=== PATIENT | male | born 1945 | race Caucasian/White ===

== ENCOUNTER 2016-08-25 16:31 | Observation (INO) ==
[2016-08-25] MEDS ORDERED: 0.9 % Sodium Chloride 1,000 ML IVC ONE ×2 (17:37→18:27)
--- NOTE | 2016-08-25 17:46 | Emergency Department Note ---
Disposition Clinical Impression: UTI (urinary tract infection) Qualifiers: Urinary tract infection type: site unspecified Hematuria presence: with hematuria Qualified Code(s): N39.0 - Urinary tract infection, site not specified Altered mental status Qualifiers: Altered mental status type: unspecified Qualified Code(s): R41.82 - Altered mental status, unspecified CKD (chronic kidney disease) Qualifiers: Chronic kidney disease stage: unspecified stage Qualified Code(s): N18.9 - Chronic kidney disease, unspecified Anemia Qualifiers: Anemia type: unspecified type Qualified Code(s): D64.9 - Anemia, unspecified Disposition: Admitted As Inpatient Condition: Fair Altered Mental Status HPI - General Chief Complaint: ED Altered Mental Status Stated Complaint: AMS Time Seen by Provider: 08/25/16 17:36 Source: patient Limitations: no limitations Nursing Notes Reviewed: Yes Vital Signs Reviewed: Yes - History of Present Illness HPI Narrative: 71-year-old male with multiple comorbid conditions including diabetes, CAD presents for evaluation of altered mental status. Patient is alert and oriented at this time but was sent in by his provider due to concerns of possible urinary tract infection sepsis. Patient states that he has been having hallucinations where he seen people. Family at bedside states that he is been acting more appropriately recently. Notes that he has had alterations in mental status and confusion. Reports fever and chills. Reported intermittent chest pain. No shortness of breath. No vomiting. No abdominal pain. No diarrhea or constipation. No recent changes in medications. Patient does state that he has had hematuria since July. Patient was evaluated by urology with a scope with an unknown diagnosis by the patient. He takes a baby aspirin. No other anticoagulation. - Related Data Home Medications Medication Instructions Recorded Confirmed Albuterol Sulfate [Proair Hfa] 2 puff IH Q4H PRN 07/29/16 07/29/16 Aspirin 81 mg PO DAILY 07/29/16 07/29/16 Atorvastatin [Lipitor] 40 mg PO HS 07/29/16 07/29/16 Celecoxib [Celebrex] 200 mg PO DAILY 07/29/16 07/29/16 Cilostazol [Pletal] 100 mg PO BID 07/29/16 07/29/16 Gabapentin [Neurontin] 100 mg PO TID 07/29/16 07/29/16 GlipiZIDE [Glipizide ER] 10 mg PO BID 07/29/16 07/29/16 Insulin DETEMIR [Levemir] 40 unit SQ HS 07/29/16 07/29/16 Isosorbide MONOnitrate (24 HR) 30 mg PO DAILY 07/29/16 07/29/16 [Imdur] Lisinopril/Hydrochlorothiazide 1 each PO DAILY 07/29/16 07/29/16 [Zestoretic 20-12.5 mg Tablet] Melatonin 5 mg PO HS PRN 07/29/16 07/29/16 Metoprolol XL (24 HR) Succ [Toprol 25 mg PO DAILY 07/29/16 07/29/16 XL] Pioglitazone [Actos] 30 mg PO 0800 07/29/16 07/29/16 Sertraline [Zoloft] 100 mg PO DAILY 07/29/16 07/29/16 Umeclidinium [place] [Incruse 1 puff IH DAILY 07/29/16 07/29/16 Ellipta] amLODIPine [Norvasc] 2.5 mg PO DAILY 07/29/16 07/29/16 Allergies Allergy/AdvReac Type Severity Reaction Status Date / Time Cefaclor [From [facility]] Allergy Chest Pain Verified 07/29/16 08:47 metformin Allergy Diarrhea Verified 07/29/16 08:47 All systems ED: reviewed and negative except as stated. Constitutional: Reports: as per HPI. Denies: fever Eyes: Reports: as per HPI ENT ED: Reports: as per HPI Cardiovascular: Reports: as per HPI Respiratory: Reports: as per HPI Gastrointestinal: Reports: as per HPI. Denies: abdominal pain, nausea, vomiting Genitourinary: Reports: as per HPI, hematuria Musculoskeletal: Reports: as per HPI Integumentary: Reports: as per HPI Neurological: Reports: as per HPI Psychiatric: Reports: as per HPI Endocrine: Reports: as per HPI Past Medical History - Past Medical History Medical history: Reports: COPD, diabetes, hyperlipidemia Psychiatric history: Reports: anxiety, depression - Social History Smoking Status: Former smoker Smokeless Tobacco Status: No Alcohol use: Reports: none Drug use: Reports: none Physical Exam - General Limitations: no limitations General appearance: alert, in no apparent distress - Head Head exam: atraumatic, normocephalic, normal inspection - Eye Eye exam: Present: normal appearance, EOMI - ENT ENT exam: normal exam, mucous membranes moist - Neck Neck exam: Present: normal inspection, trachea midline - Chest Chest inspection: Present: normal inspection, symmetric chest wall rise - Respiratory Respiratory exam: Absent: respiratory distress, accessory muscle use - Cardiovascular Cardiovascular exam: Present: regular rate, normal rhythm - Abdominal Exam Abdominal exam: Present: soft, Non-Tender. Absent: guarding, rebound - Extremities Exam Extremities exam: Present: normal inspection. Absent: pedal edema - Back Exam Back exam: Present: normal inspection - Neurological Exam Neurological exam: Present: alert, oriented X3, CN II-XII intact - Expanded Neurological Exam Patient oriented to: Present: person, place, time Speech: Present: fluid speech Cranial nerves: EOM function (II, III, IV, ): Normal, facial sensation (V): Normal, facial palsy (VII): Normal, spinal accessory function (XI): Normal, tongue deviation (XII): Normal Motor strength - LUE: 5/5 Motor strength - RUE: 5/5 Motor strength - LLE: 5/5 Motor strength - RLE: 5/5 - Psychiatric Psychiatric exam: Present: normal affect - Skin Skin exam: Present: warm, dry, intact, normal color Course Course Narrative: Patient seen and examined. Patient's in no acute distress. Patient's alert and oriented 3. Patient will get a altered mental status workup with an emphasis on infection. Labs, IV fluids, lactate as well as urinalysis. Patient also get a head CT, chest x-ray. Disposition likely admission. - Reevaluation(s) Reevaluation #1: Patients in no acute distress. Patient's plan of care was addressed to him at bedside. Recommend admission. Spoke with hospitalist for admission. Time: 18:57 Vital Signs Temperature 98.1 F 08/25/16 16:36 Pulse Rate 94 08/25/16 16:36 Respiratory Rate 18 08/25/16 16:36 Blood Pressure 115/48 08/25/16 16:36 O2 Sat by Pulse Oximetry 94 08/25/16 16:36 Temperature 98.1 F 08/25/16 16:36 Pulse Rate 77 08/25/16 18:35 Respiratory Rate 16 08/25/16 18:35 Blood Pressure 131/57 08/25/16 18:35 O2 Sat by Pulse Oximetry 94 08/25/16 18:35 Oxygen Delivery Oxygen Delivery Room Air Altered Mental Status - MDM Narrative Medical decision making narrative: 71 YO male presents for evaluation of altered mental status confusion. Patient' s been having intermittent altered mental status as well as urinary symptoms including hematuria. Patient's urine was grossly abnormal on visual inspection. Patient's alert and oriented on exam. Patient's been having intermittent symptoms. Family at bedside confirms the symptoms. Patient states he also been having some hallucinations seeing people that are not there has been intermittent. Patient's lab work shows significant abnormalities including signs of infection in the urine. Patient also shows anemia. Worsening kidney function. Concerns for urinary tract infection causing altered mental status. Patient was started on Levaquin due to his cephalosporin allergy. Patient will be admitted to the hospital service for further violation monitoring. Do not believe this is meningitis or encephalitis. At this point the patient does not have any nuchal rigidity. The patient's alert and oriented with a nonfocal neurologic exam. Patient's symptoms possibly related to urinary source. Patient was updated on plan of care. Patient was admitted to the hospital service for further evaluation monitoring. - Lab Data Lab results reviewed: Yes I reviewed the patient's lab results. Result diagrams: 08/25/16 17:50 08/25/16 17:50 Lab Results 08/25/16 08/25/16 08/25/16 Range/Units 17:30 17:36 17:36 WBC (4.3-11.1) K/mcL RBC (4.19-5.50) M/mcL Hgb (12.9-16.9) g/dL Hct (37.5-50.1) % MCV (83.0-100.0) fL MCH (28.0-33.3) pg MCHC (31.6-35.5) g/dL RDW (11.5-14.5) % Plt Count (140-400) K/mcL MPV (9.4-12.4) fL Immature Gran % (0-4) % Seg Neutrophils % % Lymphocytes % % Monocytes % % Eosinophils % % Basophils % % Neutrophils # (1.6-8.9) K/mcL Lymphocytes # (0.6-4.6) K/mcL Monocytes # (0.0-1.3) K/mcL Eosinophils # (0.0-0.6) K/mcL Basophils # (0.0-0.2) K/mcL Platelet Estimate (Normal) PT (9.4-12.1) Seconds INR APTT (26.0-36.0) Seconds Sodium (136-145) mEq/L Potassium (3.5-4.5) mEq/L Chloride (98-109) mEq/L Carbon Dioxide (19-29) mEq/L BUN (8-26) mg/dL Creatinine (0.72-1.25) mg/dL Est GFR ( Amer) (> 60) Est GFR (Non-Af Amer) (> 60) BUN/Creatinine Ratio (6-26) Glucose (70-99) mg/dL POC Glucose 282 H (58-89) Calculated Osmolality (280-300) Lactic Acid (0.5-2.2) mmol/L Calcium (8.6-10.8) mg/dL Total Bilirubin (0.2-1.2) mg/dL Direct Bilirubin (0.0-0.5) mg/dL Indirect Bilirubin (0.0-1.2) mg/dL AST (5-34) Units/L ALT (0-55) Units/L Alkaline Phosphatase (38-126) Units/L Creatine Kinase (30-200) Units/L Troponin I (0-0.03) ng/mL Serum Total Protein (6.0-8.3) g/dL Albumin (3.5-5.0) g/dL Globulin (2.4-3.5) g/dL Albumin/Globulin Ratio (1.1-2.2) TSH (0.350-4.840) mcIU/mL Ur Specimen Adequacy See below A Urine Color Red A (Yellow) Urine Clarity Turbid A (Clear) Urine pH 5.0 (5.0-8.0) pH Units Ur Specific [place] 1.023 (1.010-1.025) Urine Protein >=300 H (Neg-Trace) mg/dL Urine Glucose (UA) Normal (Normal) mg/dL Urine Ketones 15 H (Negative) mg/dL Urine Blood Large H (Negative) Urine Nitrite Positive A (Negative) Urine Bilirubin Moderate H (Negative) Urine Urobilinogen Normal (Normal) mg/dL Ur Leukocyte Esterase Moderate H (Negative) Ur Culture Indicated? YES A (NO) Urine Opiates Screen Negative (Xmrdmu=475) ng/mL Ur Barbiturates Screen Negative (Teerro=835) ng/mL Ur Phencyclidine Scrn Negative (Cutoff=25) ng/mL Ur Amphetamines Screen Negative (Jiranz=3671) ng/mL U Benzodiazepines Scrn Negative (Yvjjxy=807) ng/mL Urine Cocaine Screen Negative (Cutoff= 300) ng/mL U Marijuana (THC) Screen Negative (Cutoff = 50) ng/mL Ethyl Alcohol (0-10) mg/dL 08/25/16 08/25/16 08/25/16 Range/Units 17:50 17:50 17:50 WBC 11.6 H (4.3-11.1) K/mcL RBC 3.98 L (4.19-5.50) M/mcL Hgb 11.8 L (12.9-16.9) g/dL Hct 34.6 L (37.5-50.1) % MCV 86.9 (83.0-100.0) fL MCH 29.6 (28.0-33.3) pg MCHC 34.1 (31.6-35.5) g/dL RDW 14.6 H (11.5-14.5) % Plt Count 159 (140-400) K/mcL MPV 9.7 (9.4-12.4) fL Immature Gran % 0.4 (0-4) % Seg Neutrophils % 83.2 % Lymphocytes % 7.5 % Monocytes % 8.4 % Eosinophils % 0.2 % Basophils % 0.3 % Neutrophils # 9.7 H (1.6-8.9) K/mcL Lymphocytes # 0.9 (0.6-4.6) K/mcL Monocytes # 1.0 (0.0-1.3) K/mcL Eosinophils # 0.0 (0.0-0.6) K/mcL Basophils # 0.0 (0.0-0.2) K/mcL Platelet Estimate Normal (Normal) PT 12.8 H (9.4-12.1) Seconds INR 1.2 APTT 33.2 (26.0-36.0) Seconds Sodium 133 L (136-145) mEq/L Potassium 3.3 L (3.5-4.5) mEq/L Chloride 97 L (98-109) mEq/L Carbon Dioxide 26 (19-29) mEq/L BUN 38 H (8-26) mg/dL Creatinine 1.67 H (0.72-1.25) mg/dL Est GFR ( Amer) 49 L (> 60) Est GFR (Non-Af Amer) 41 L (> 60) BUN/Creatinine Ratio 23 (6-26) Glucose 289 H (70-99) mg/dL POC Glucose (58-89) Calculated Osmolality 296 (280-300) Lactic Acid (0.5-2.2) mmol/L Calcium 8.6 (8.6-10.8) mg/dL Total Bilirubin 0.7 (0.2-1.2) mg/dL Direct Bilirubin 0.3 (0.0-0.5) mg/dL Indirect Bilirubin 0.4 (0.0-1.2) mg/dL AST 33 (5-34) Units/L ALT 25 (0-55) Units/L Alkaline Phosphatase 49 (38-126) Units/L Creatine Kinase 338 H (30-200) Units/L Troponin I (0-0.03) ng/mL Serum Total Protein 7.1 (6.0-8.3) g/dL Albumin 2.9 L (3.5-5.0) g/dL Globulin 4.2 H (2.4-3.5) g/dL Albumin/Globulin Ratio 0.7 L (1.1-2.2) TSH 3.513 (0.350-4.840) mcIU/mL Ur Specimen Adequacy Urine Color (Yellow) Urine Clarity (Clear) Urine pH (5.0-8.0) pH Units Ur Specific [place] (1.010-1.025) Urine Protein (Neg-Trace) mg/dL Urine Glucose (UA) (Normal) mg/dL Urine Ketones (Negative) mg/dL Urine Blood (Negative) Urine Nitrite (Negative) Urine Bilirubin (Negative) Urine Urobilinogen (Normal) mg/dL Ur Leukocyte Esterase (Negative) Ur Culture Indicated? (NO) Urine Opiates Screen (Oaynmm=937) ng/mL Ur Barbiturates Screen (Bibnle=667) ng/mL Ur Phencyclidine Scrn (Cutoff=25) ng/mL Ur Amphetamines Screen (Gdhxfp=7981) ng/mL U Benzodiazepines Scrn (Neccwu=215) ng/mL Urine Cocaine Screen (Cutoff= 300) ng/mL U Marijuana (THC) Screen (Cutoff = 50) ng/mL Ethyl Alcohol < 10 (0-10) mg/dL 08/25/16 08/25/16 Range/Units 17:50 17:50 WBC (4.3-11.1) K/mcL RBC (4.19-5.50) M/mcL Hgb (12.9-16.9) g/dL Hct (37.5-50.1) % MCV (83.0-100.0) fL MCH (28.0-33.3) pg MCHC (31.6-35.5) g/dL RDW (11.5-14.5) % Plt Count (140-400) K/mcL MPV (9.4-12.4) fL Immature Gran % (0-4) % Seg Neutrophils % % Lymphocytes % % Monocytes % % Eosinophils % % Basophils % % Neutrophils # (1.6-8.9) K/mcL Lymphocytes # (0.6-4.6) K/mcL Monocytes # (0.0-1.3) K/mcL Eosinophils # (0.0-0.6) K/mcL Basophils # (0.0-0.2) K/mcL Platelet Estimate (Normal) PT (9.4-12.1) Seconds INR APTT (26.0-36.0) Seconds Sodium (136-145) mEq/L Potassium (3.5-4.5) mEq/L Chloride (98-109) mEq/L Carbon Dioxide (19-29) mEq/L BUN (8-26) mg/dL Creatinine (0.72-1.25) mg/dL Est GFR ( Amer) (> 60) Est GFR (Non-Af Amer) (> 60) BUN/Creatinine Ratio (6-26) Glucose (70-99) mg/dL POC Glucose (58-89) Calculated Osmolality (280-300) Lactic Acid 1.3 (0.5-2.2) mmol/L Calcium (8.6-10.8) mg/dL Total Bilirubin (0.2-1.2) mg/dL Direct Bilirubin (0.0-0.5) mg/dL Indirect Bilirubin (0.0-1.2) mg/dL AST (5-34) Units/L ALT (0-55) Units/L Alkaline Phosphatase (38-126) Units/L Creatine Kinase (30-200) Units/L Troponin I 0.01 (0-0.03) ng/mL Serum Total Protein (6.0-8.3) g/dL Albumin (3.5-5.0) g/dL Globulin (2.4-3.5) g/dL Albumin/Globulin Ratio (1.1-2.2) TSH (0.350-4.840) mcIU/mL Ur Specimen Adequacy Urine Color (Yellow) Urine Clarity (Clear) Urine pH (5.0-8.0) pH Units Ur Specific [place] (1.010-1.025) Urine Protein (Neg-Trace) mg/dL Urine Glucose (UA) (Normal) mg/dL Urine Ketones (Negative) mg/dL Urine Blood (Negative) Urine Nitrite (Negative) Urine Bilirubin (Negative) Urine Urobilinogen (Normal) mg/dL Ur Leukocyte Esterase (Negative) Ur Culture Indicated? (NO) Urine Opiates Screen (Wlssqw=559) ng/mL Ur Barbiturates Screen (Jeovhy=053) ng/mL Ur Phencyclidine Scrn (Cutoff=25) ng/mL Ur Amphetamines Screen (Fewmoi=2055) ng/mL U Benzodiazepines Scrn (Wxrrqm=078) ng/mL Urine Cocaine Screen (Cutoff= 300) ng/mL U Marijuana (THC) Screen (Cutoff = 50) ng/mL Ethyl Alcohol (0-10) mg/dL - Radiology Data Radiology results reviewed: Yes I reviewed the patient's radiology results. - EKG Data EKG attestation: Yes I reviewed and interpreted this EKG. EKG shows normal: sinus rhythm Rate: normal Rhythm: NSR [place]/QRS: normal Q waves: III, aVF Ectopy: PVC Interpretation: no acute changes, nonspecific ST-T wave changes S.B.A.R. - S.B.A.R. Situation: Demographics, MOA Background: Presenting Complaint, Relevant PMH, Meds, & Allergies Assessment: Vital Signs, Course and respsone to treatment, Patient/Family Expectation, Pertinant Lab Results Recommendation: Barrier(s) to disposition, Recommendation based on pending studies, treatments, or consults S.B.A.RJanneth Report Given to: Dr. Mathis SJannethBJannethALeilani Repor Time: 18:45 Attestation Statement - Attestation Attestation: Patient was seen with resident physician. I reviewed the history, physical, assessment and plan, and agree with the findings. I also personally evaluated this patient and had [id number] time with this patient. 71-year-old male sent to the emergency Department from his primary care physician for chief complaint of mental status change and possible sepsis. Patient states that ever since she has had a ureteroscope he has had increased blood in his urine, with dark urine and he is developed intermittent hallucinations seeing people that are not there with increasing confusion. He says today is actually one of his better days and is feeling pretty good. Denies nausea vomiting or diarrhea. He has had intermittent fevers and chills though. He denies headaches or neck pain no photophobia. On examination vital signs are stable. ENT is unremarkable. There is no nuchal rigidity and the neck is supple and nontender. Heart and lungs are both normal. Abdomen is soft and nontender. Extremities are unremarkable. Neurologically the patient is alert and oriented with good strength and no focal deficits. ED course we will do a septic workup including head CT scan chest x-ray blood cultures and laboratory data. We will start IV antibiotics and have patient admitted to the hospital. Only pertinent finding was a positive urinary tract infection but with this combination of altered mental status we felt admission was indicated. Did not meet sepsis criteria at this time. Hospitalist was notified and agreed to accept patient for admission. Hemodynamically he remained stable throughout the period of time where I cared for him.
[2016-08-25 17:51] LABS: Amphetamine Screen,Urine Negative ng/mL (Cutoff=1000); Barbiturate Screen,Urine Negative ng/mL (Cutoff=200); Benzodiazepines Screen,Urine Negative ng/mL (Cutoff=200); Cannabinoid Screen,Urine Negative ng/mL (Cutoff = 50); Cocaine Screen,Urine Negative ng/mL (Cutoff= 300); Opiate Screen,Urine Negative ng/mL (Cutoff=300); Phencyclidine Screen,Urine Negative ng/mL (Cutoff=25)
[2016-08-25 18:02] LABS: Bilirubin,Urine Moderate (Negative); Blood,Urine Large (Negative); Clarity,Urine Turbid (Clear); Color,Urine Red (Yellow); Glucose,Urine (UA) Normal (Normal); Ketones,Urine 15 mg/dL (Negative); Leukocyte Esterase,Urine Moderate (Negative); Nitrite,Urine Positive (Negative); Protein,Urine >=300 mg/dL (Neg-Trace); Specific Gravity,Urine 1.023 (1.010-1.025); Urobilinogen,Urine Normal (Normal)
[2016-08-25 18:04] LABS: Basophils % 0.3 %; Eosinophils % 0.2 %; Hematocrit 34.6 % (37.5-50.1); Hemoglobin 11.8 g/dL (12.9-16.9); Immature Granulocytes % 0.4 % (0-4); Lymphocytes # 0.9 K/mcL (0.6-4.6); Lymphocytes % 7.5 %; Mean Corpuscular HGB Conc 34.1 g/dL (31.6-35.5); Mean Corpuscular Hemoglobin 29.6 pg (28.0-33.3); Mean Corpuscular Volume 86.9 fL (83.0-100.0); Mean Platelet Volume 9.7 fL (9.4-12.4); Monocytes % 8.4 %; Neutrophils # 9.7 K/mcL (1.6-8.9); Platelet Count 159 K/mcL (140-400); Red Blood Count 3.98 M/mcL (4.19-5.50); Red Cell Distribution Width 14.6 % (11.5-14.5); Segmented Neutrophils % 83.2 %
[2016-08-25 18:09] LABS: INR 1.2; Prothrombin Time 12.8 Seconds (9.4-12.1)
[2016-08-25 18:12] LABS: Activated Partial Thrombo Time 33.2 Seconds (26.0-36.0)
[2016-08-25 18:21] LABS: Alanine Aminotransferase 25 Units/L (0-55); Albumin 2.9 g/dL (3.5-5.0); Albumin/Globulin Ratio 0.7 (1.1-2.2); Alkaline Phosphatase 49 Units/L (38-126); Aspartate Amino Transferase 33 Units/L (5-34); BUN/Creatinine Ratio 23 (6-26); Bilirubin,Direct 0.3 mg/dL (0.0-0.5); Bilirubin,Indirect 0.4 mg/dL (0.0-1.2); Bilirubin,Total 0.7 mg/dL (0.2-1.2); Blood Urea Nitrogen 38 mg/dL (8-26); Calcium 8.6 mg/dL (8.6-10.8); Carbon Dioxide 26 mEq/L (19-29); Chloride 97 mEq/L (98-109); Creatine Kinase 338 Units/L (30-200); Globulin 4.2 g/dL (2.4-3.5); Glucose 289 mg/dL (70-99); Osmolality,Calculated 296 (280-300); Potassium 3.3 mEq/L (3.5-4.5); Sodium 133 mEq/L (136-145); Total Protein 7.1 g/dL (6.0-8.3); eGFR For African Americans 49 (> 60); eGFR For Non-African Americans 41 (> 60)
[2016-08-25 18:22] LABS: Ethanol < 10 mg/dL (0-10)
[2016-08-25] MEDS ORDERED: Levofloxacin 750 MG/150 ML 750 MG/150 ML BAG IVPB ONE (18:22)
[2016-08-25 18:33] LABS: Platelet Estimate Normal (Normal)
[2016-08-25 18:41] LABS: Thyroid Stimulating Hormone 3.513 mcIU/mL (0.350-4.840)
[2016-08-25] MEDS ORDERED: Naloxone 0.4 MG/ML INJ IVP PRN (21:01)
[2016-08-25] MEDS ORDERED: D5% in Water 1,000 ML IVC PRN (21:06)
[2016-08-25] MEDS ORDERED: *HR* Dextrose 50 % in Water (Syg) 50 ML SYRINGE IVP PRN (21:06)
[2016-08-25] MEDS ORDERED: Dextrose Gel 15 GM PO PRN ×2 (21:06)
[2016-08-25] MEDS ORDERED: Melatonin 3 MG TABLET PO PRN (21:07)
--- NOTE | 2016-08-25 21:10 | Internal Med History&Physical ---
Date of Encounter: 08/25/16 Time of Encounter: 21:09 Assessment and Plan (1) Encephalopathy Current visit: Yes Status: Acute Likely due to UTI. CT head is negative. supportive care. Treat UTI (2) UTI (urinary tract infection) Current visit: Yes Status: Acute Treat with levofloxacin. pt is allergic to cefalosporins. 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 Monitor renal function. Avoid nephrotoxics Internal Medicine - H&P: HPI Chief complaint: Confusion Admitted From: Emergency Dept Plans for Post Hospital Care: Home History of present illness: Mr. Quiroz is a 71 year old male With h/o diabetes, CAD, HTN presented to the ER for evaluation of altered mental status. Pt reports that he could not put the words together. He reports hematuria for a few months and was evaluated in the past by urologist Dr. Figueroa and apparently no cause was found. He was diagnosed to have gall stones and is expected to have cholecystectomy done. He denies abdominal pain, dysphagia, graveluria, fevers, chills, nausea, vomiting, bowel changes. He was evaluated in the ER and was noted to have abnormal urinalysis, CT head showed no acute abnormalities. He was given levofloxacin and admitted to the hospitalist service for further management. Past Med Surg Social Fam HX - Past Medical History Medical history: COPD, diabetes, hyperlipidemia Psychiatric history: anxiety, depression - Social History Smoking Status: Former smoker Smokeless Tobacco Status: No Alcohol use: none Drug use: none - Family History Mother Age at : 73 Cause of : stroke Hx Family Neurologic Disorders: Yes (cva) Internal Medicine - H&P: Meds Albuterol Sulfate [Proair Hfa] 2 puff IH Q4H PRN 07/29/16 [History] Aspirin 81 mg PO DAILY 07/29/16 [History] Atorvastatin [Lipitor] 40 mg PO HS 07/29/16 [History] Celecoxib [Celebrex] 200 mg PO DAILY 07/29/16 [History] Cilostazol [Pletal] 100 mg PO BID 07/29/16 [History] Gabapentin [Neurontin] 100 mg PO TID 07/29/16 [History] GlipiZIDE [Glipizide ER] 10 mg PO BID 07/29/16 [History] Insulin DETEMIR [Levemir] 50 unit SQ HS 07/29/16 [History] Isosorbide MONOnitrate (24 HR) [Imdur] 30 mg PO DAILY 07/29/16 [History] Lisinopril/Hydrochlorothiazide [Zestoretic 20-12.5 mg Tablet] 1 tab PO DAILY [History] Melatonin 5 mg PO HS PRN 07/29/16 [History] Metoprolol XL (24 HR) Succ [Toprol XL] 25 mg PO DAILY 07/29/16 [History] Pioglitazone [Actos] 30 mg PO DAILY 07/29/16 [History] Sertraline [Zoloft] 100 mg PO DAILY 07/29/16 [History] Umeclidinium [place] [Incruse Ellipta] 1 puff IH DAILY 07/29/16 [History] amLODIPine [Norvasc] 2.5 mg PO DAILY 07/29/16 [History] Allergies Cefaclor [From Ceclor] Allergy (Verified 07/29/16 08:47) Chest Pain metformin Allergy (Verified 07/29/16 08:47) Diarrhea All Systems PM: A 10-system review of systems was performed and is negative for pertinent findings except as documented above in the HPI. - Constitutional Vitals: Temp Pulse Resp BP Pulse Ox 99.3 F 80 16 121/56 93 08/25/16 20:46 08/25/16 20:46 08/25/16 20:46 08/25/16 20:46 08/25/16 20:46 Exam: General: Not in acute distress at the time of my evaluation HEENT: Oral mucosa is moist. No conjunctival palor or scleral icterus Neck: No obvious neck swellings Lungs: Clear to auscultation Cardiac: Regular rate and rhythm. No significant murmurs Abdomen: Soft, non tender. Bowel sounds present Genitourinary: No edwards catheter Neurological: Alert and oriented. No gross localizing deficits Psych: Not aggressive or agitated Extremities: no significant leg edema Skin: No generalized rash Internal Med - H&P Results - Labs CBC & Chem 7: 08/26/16 03:51 08/26/16 03:51 - Impressions ITS Impressions Chest X-Ray 08/25/16 17:37 IMPRESSION: No acute findings in the chest. D/ / Jeison Caruso MD / Jeison Caruso MD Interpreting Provider: Jeison Caruso MD Head CT 08/25/16 17:38 IMPRESSION: No acute intracranial abnormality. Patchy hypodensities in the periventricular and subcortical white matter, which are nonspecific, but may represent chronic small vessel ischemic change. D/ / 08/25/2016 18:48:59 Artur Andre MD / andreas Interpreting Provider: Artur Andre MD
[2016-08-25] MEDS ORDERED: Insulin DETEMIR 100 UNIT/ML X5UNITS SQ SCH (21:15)
[2016-08-25] MEDS ORDERED: NON-FORMULARY MEDICATION 1 EACH EACH (Insulin Detemir 50 UNIT) SQ SCH (21:15)
[2016-08-25] MEDS: Insulin LISPRO 300 UNITS/3 ML VIAL SQ SCH (21:41)
[2016-08-26 05:24] LABS: Basophils % 0.2 %; Eosinophils % 0.2 %; Hematocrit 33.2 % (37.5-50.1); Hemoglobin 11.1 g/dL (12.9-16.9); Immature Granulocytes % 0.7 % (0-4); Lymphocytes # 0.8 K/mcL (0.6-4.6); Lymphocytes % 7.2 %; Mean Corpuscular HGB Conc 33.4 g/dL (31.6-35.5); Mean Corpuscular Hemoglobin 28.7 pg (28.0-33.3); Mean Corpuscular Volume 85.8 fL (83.0-100.0); Mean Platelet Volume 10.3 fL (9.4-12.4); Monocytes # 1.3 K/mcL (0.0-1.3); Monocytes % 11.3 %; Neutrophils # 9.2 K/mcL (1.6-8.9); Platelet Count 182 K/mcL (140-400); Red Blood Count 3.87 M/mcL (4.19-5.50); Red Cell Distribution Width 14.4 % (11.5-14.5); Segmented Neutrophils % 80.4 %
[2016-08-26 05:41] LABS: BUN/Creatinine Ratio 27 (6-26); Blood Urea Nitrogen 32 mg/dL (8-26); Calcium 8.1 mg/dL (8.6-10.8); Carbon Dioxide 25 mEq/L (19-29); Chloride 102 mEq/L (98-109); Glucose 45 mg/dL (70-99); Magnesium 1.6 mg/dL (1.6-2.6); Osmolality,Calculated 286 (280-300); Potassium 2.9 mEq/L (3.5-4.5); Sodium 136 mEq/L (136-145); eGFR For African Americans > 60 (> 60); eGFR For Non-African Americans > 60 (> 60)
[2016-08-26] MEDS: *HR* Enoxaparin 40 MG/0.4 ML SYRINGE SQ SCH (06:09)
[2016-08-26] MEDS: Insulin LISPRO 300 UNITS/3 ML VIAL SQ SCH ×4 (09:34→20:42)
[2016-08-26] MEDS: Isosorbide MONOnitrate (24 HR) 30 MG TAB.ER.24H PO SCH (09:35)
[2016-08-26] MEDS: Aspirin 81 MG TAB.CHEW PO SCH (09:35)
[2016-08-26] MEDS: Gabapentin 100 MG CAPSULE PO SCH ×3 (09:36→20:44)
[2016-08-26] MEDS: Metoprolol XL (24 HR) Succ 25 MG TAB.ER.24H PO SCH (09:36)
--- NOTE | 2016-08-26 13:51 | Internal Med Progress Note ---
Date of Encounter: 08/26/16 Time of Encounter: 07:45 - Assessment and plan (1) Encephalopathy Current Visit: Yes Status: Resolved Assessment and plan: This has now resolved (2) Acute kidney injury Current Visit: Yes Status: Resolved Assessment and plan: Improved with hydration. (3) Anemia Current Visit: Yes Status: Chronic Assessment and plan: Hemoglobin levels have remained stable. Likely anemia related to chronic kidney disease Qualifiers: Anemia type: other cause Other causes of anemia: chronic disease, kidney Qualified Code(s): N18.9 - Chronic kidney disease, unspecified; D63.1 - Anemia in chronic kidney disease (4) CKD (chronic kidney disease) Current Visit: Yes Status: Chronic Assessment and plan: Renal function improved with IV hydration. Back to baseline. Qualifiers: Chronic kidney disease stage: stage 2 (mild) Qualified Code(s): N18.2 - Chronic kidney disease, stage 2 (mild) (5) Diabetes mellitus Current Visit: Yes Status: Chronic Assessment and plan: Hypoglycemia early this morning. Will adjust insulin regimen and change Levemir dosage. Continue to monitor blood sugars closely. 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 Will await final culture results prior to discharge. Qualifiers: Urinary tract infection type: acute cystitis Hematuria presence: with hematuria Qualified Code(s): N30.01 - Acute cystitis with hematuria - Subjective Interval history: Patient is feeling much better today. He is awake alert and oriented. Denies any new complaints at this time. Tolerating diet well. He did have low blood sugar early this morning and this was treated. - Constitutional Vitals: Temp Pulse Resp BP Pulse Ox 98.0 F 72 16 112/61 96 08/26/16 11:43 08/26/16 11:43 08/26/16 11:43 08/26/16 11:43 08/26/16 11:43 General appearance: Present: cooperative, A&O X 3, answers questions appropriately - Respiratory Respiratory exam: Present: CTAB. Absent: accessory muscle use, rales, rhonchi, wheezes - Cardiovascular Cardiovascular exam: Present: RRR, +S1, +S2. Absent: diastolic murmur, gallop, rubs, systolic murmur - GI/Abdominal GI/Abdominal exam: Present: normal bowel sounds, soft, no peritoneal signs. Absent: distended, tenderness - Neurological Exam Neurological exam: Present: alert, oriented X3, no focal deficits. Absent: facial droop, speech deficit - Skin Skin exam: Present: dry, intact Internal Medicine: Result - Labs CBC & Chem 7: 08/26/16 03:51 08/26/16 03:51 Labs: Short CBC 08/26/16 Range/Units 03:51 WBC 11.4 H (4.3-11.1) K/mcL Hgb 11.1 L (12.9-16.9) g/dL Hct 33.2 L (37.5-50.1) % Plt Count 182 (140-400) K/mcL Neutrophils # 9.2 H (1.6-8.9) K/mcL BMP 08/26/16 03:51 Sodium 136 Potassium 2.9 L Chloride 102 Carbon Dioxide 25 BUN 32 H Creatinine 1.19 Glucose 45 L Calcium 8.1 L - ABG Interpretation ABG results: PT/INR, D-dimer PT 12.8 Seconds (9.4-12.1) H 08/25/16 17:50 Consult Discharge Plan - Plan Referrals: Jeison Ontiveros MD [Primary Care Provider] - - Attending Attestation This document has been at least partially created by [employer] recognition technology by Dr. Avery. Errors in grammar, wording or other phrases may exist. If errors are found after the documentation is signed, they will be addressed individually in the addendum section of this document when appropriate.
[2016-08-26] MEDS ORDERED: Levofloxacin 500 MG/100 ML 500 MG/100 ML BAG IVPB SCH (17:00)
--- NOTE | 2016-08-26 17:24 | Electrocardiograph Report ---
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
[2016-08-26] MEDS: Insulin DETEMIR 100 UNIT/ML X5UNITS SQ SCH (20:43)
[2016-08-27] MEDS: *HR* Enoxaparin 40 MG/0.4 ML SYRINGE SQ SCH (06:07)
[2016-08-27 06:49] LABS: Basophils # 0.1 K/mcL (0.0-0.2); Basophils % 0.6 %; Eosinophils # 0.2 K/mcL (0.0-0.6); Eosinophils % 2.3 %; Hematocrit 34.2 % (37.5-50.1); Immature Granulocytes % 0.3 % (0-4); Lymphocytes # 1.5 K/mcL (0.6-4.6); Lymphocytes % 18.4 %; Mean Corpuscular HGB Conc 32.2 g/dL (31.6-35.5); Mean Corpuscular Hemoglobin 29.3 pg (28.0-33.3); Mean Corpuscular Volume 91.2 fL (83.0-100.0); Mean Platelet Volume 10.3 fL (9.4-12.4); Monocytes # 1.3 K/mcL (0.0-1.3); Monocytes % 16.3 %; Neutrophils # 4.9 K/mcL (1.6-8.9); Platelet Count 170 K/mcL (140-400); Red Blood Count 3.75 M/mcL (4.19-5.50); Segmented Neutrophils % 62.1 %
[2016-08-27 07:01] LABS: BUN/Creatinine Ratio 24 (6-26); Blood Urea Nitrogen 27 mg/dL (8-26); Calcium 8.5 mg/dL (8.6-10.8); Carbon Dioxide 24 mEq/L (19-29); Chloride 107 mEq/L (98-109); Glucose 105 mg/dL (70-99); Osmolality,Calculated 291 (280-300); Sodium 138 mEq/L (136-145); eGFR For African Americans > 60 (> 60); eGFR For Non-African Americans > 60 (> 60)
[2016-08-27 07:31] LABS: Potassium 4.2 mEq/L (3.5-4.5)
[2016-08-27 07:41] VITALS: BP 135/64
[2016-08-27] MEDS: Insulin LISPRO 300 UNITS/3 ML VIAL SQ SCH (08:23)
[2016-08-27] MEDS: Isosorbide MONOnitrate (24 HR) 30 MG TAB.ER.24H PO SCH (08:24)
[2016-08-27] MEDS: Aspirin 81 MG TAB.CHEW PO SCH (08:24)
[2016-08-27] MEDS: Insulin DETEMIR 100 UNIT/ML X5UNITS SQ SCH (08:24)
[2016-08-27] MEDS: Metoprolol XL (24 HR) Succ 25 MG TAB.ER.24H PO SCH (08:25)
[2016-08-27] MEDS: Gabapentin 100 MG CAPSULE PO SCH (08:25)
--- NOTE | 2016-08-27 09:24 | Discharge Summary ---
Date of Encounter: 08/27/16 Time of Encounter: 08:20 - Discharge Diagnosis (1) Encephalopathy Priority: Primary Status: Resolved (2) Acute kidney injury Priority: Secondary Status: Resolved (3) Anemia Priority: Secondary Status: Chronic Qualifiers: Anemia type: other cause Other causes of anemia: chronic disease, kidney Qualified Code(s): N18.9 - Chronic kidney disease, unspecified; D63.1 - Anemia in chronic kidney disease (4) CKD (chronic kidney disease) Priority: Secondary Status: Chronic Qualifiers: Chronic kidney disease stage: stage 2 (mild) Qualified Code(s): N18.2 - Chronic kidney disease, stage 2 (mild) (5) Diabetes mellitus Priority: Secondary Status: Chronic Qualifiers: Diabetes mellitus type: type 2 Diabetes mellitus complication status: with unspecified complications Diabetes mellitus alf insulin use: with alf use Qualified Code(s): E11.8 - Type 2 diabetes mellitus with unspecified complications; Z79.4 - [facility] (current) use of insulin (6) UTI (urinary tract infection) Priority: Secondary Status: Acute Qualifiers: Urinary tract infection type: acute cystitis Hematuria presence: with hematuria Qualified Code(s): N30.01 - Acute cystitis with hematuria - Discharge Medications Prescriptions: levoFLOXacin [Levofloxacin] 500 mg PO DAILY #7 tablet Lisinopril [Zestril] 20 mg PO DAILY #30 tablet Home Medications: Albuterol Sulfate [Proair Hfa] 2 puff IH Q4H PRN 07/29/16 [History] Aspirin 81 mg PO DAILY 07/29/16 [History] Atorvastatin [Lipitor] 40 mg PO HS 07/29/16 [History] Celecoxib [Celebrex] 200 mg PO DAILY 07/29/16 [History] Cilostazol [Pletal] 100 mg PO BID 07/29/16 [History] Gabapentin [Neurontin] 100 mg PO TID 07/29/16 [History] GlipiZIDE [Glipizide ER] 10 mg PO BID 07/29/16 [History] Insulin DETEMIR [Levemir] 50 unit SQ HS 07/29/16 [History] Isosorbide MONOnitrate (24 HR) [Imdur] 30 mg PO DAILY 07/29/16 [History] Melatonin 5 mg PO HS PRN 07/29/16 [History] Metoprolol XL (24 HR) Succ [Toprol Xl] 25 mg PO DAILY 07/29/16 [History] Pioglitazone [Actos] 30 mg PO DAILY 07/29/16 [History] Sertraline [Zoloft] 100 mg PO DAILY 07/29/16 [History] Umeclidinium [place] [Incruse Ellipta] 1 puff IH DAILY 07/29/16 [History] amLODIPine [Norvasc] 2.5 mg PO DAILY 07/29/16 [History] Lisinopril [Zestril] 20 mg PO DAILY #30 tablet 08/27/16 [Rx] levoFLOXacin [Levofloxacin] 500 mg PO DAILY #7 tablet 08/27/16 [Rx] Allergies/Adverse Reactions: Allergies Cefaclor [From Ceclor] Allergy (Verified 07/29/16 08:47) Chest Pain metformin Allergy (Verified 07/29/16 08:47) Diarrhea Date of admission: 08/25/16 18:59 Primary care physician: Darwin Malagon Discharging clinician: Janet Avery Anticipated date of discharge: 08/27/16 - Patient Status Disposition: Home, Self-Care Condition: Fair Overall status at discharge: patient is back to baseline - Discharge Instructions Instructions: Urinary Tract Infection in Men (DC) Follow Up With: Jeison Ontiveros MD [Primary Care Provider] - (in 1-2 weeks) - Diet and Activity Activity: resume usual activities as tolerated Diet: advance to your usual diet, diabetic diet, low fat, low cholesterol, low salt diet Hospital course: Mr. Quiroz is a 71 year old male with histo ry of diabetes mellitus type 2, chronic kidney disease stage III who presented to the ER with complaints of altered mental status. She was diagnosed with acute urinary tract infection and was treated with IV levofloxacin. His urine cultures positive for Escherichia coli sensitive to levofloxacin. His white count is now normal. He is feeling much better and is back to his is lying mentally. He is stable for discharge and will complete antibiotic therapy with levofloxacin. Patient also was diagnosed with acute kidney injury on his chronic kidney disease and this was treated with IV hydration. Patient's renal function has now improved and is back to baseline. He was also hypokalemic and was treated with oral potassium supplements. However, I am stopping his hydrochlorothiazide but continuing his lisinopril given his renal dysfunction. He can follow up further with his primary care provider. - Time Spent with Patient Total time spent providing and/or coordinating discharge services: Less than 30 minutes (25 min) - Constitutional Vitals: Temp Pulse Resp BP Pulse Ox 98.3 F 66 17 135/64 94 08/27/16 07:41 08/27/16 07:41 08/27/16 07:41 08/27/16 07:41 08/27/16 07:41 General appearance: Present: cooperative, A&O X 3, answers questions appropriately - Respiratory Respiratory exam: Present: CTAB. Absent: accessory muscle use, rales, rhonchi, wheezes - Cardiovascular Cardiovascular exam: Present: RRR, +S1, +S2. Absent: diastolic murmur, gallop, rubs, systolic murmur - Neurological Exam Neurological exam: Present: oriented X3, no focal deficits. Absent: facial droop, speech deficit
== END 2016-08-27 10:10 | disposition home or self-care (01) ==
LOC: EMEROO 16:31 → 3BNU 16:31 → INTOOBSV 18:59 → 3BNU 19:51 → SUATTDRO 21:01
PROVIDERS: ADMIT Internal Medicine Sleep Medicine; ATTEND Internal Medicine

== ENCOUNTER 2016-09-08 08:05 | Observation (INO) ==
[2016-09-08] MEDS ORDERED: Ondansetron 4 MG/2 ML VIAL IVP PRN (09:59)
[2016-09-08] MEDS ORDERED: Naloxone 0.4 MG/ML INJ IVP PRN (09:59)
[2016-09-08] MEDS: 0.9 % Sodium Chloride 1,000 ML IVC SCH (11:54)
[2016-09-08] MEDS ORDERED: D5% in Water 1,000 ML IVC PRN (12:13)
[2016-09-08] MEDS ORDERED: Dextrose Gel 15 GM PO PRN ×2 (12:13)
[2016-09-08] MEDS ORDERED: *HR* Dextrose 50 % in Water (Syg) 50 ML SYRINGE IVP PRN (12:13)
[2016-09-08] MEDS ORDERED: *HR* Dextrose 50 % in Water (Syg) 50 ML SYRINGE ONE (12:32)
[2016-09-08] MEDS ORDERED: Lidocaine -MPF 4% 5 ML AMPUL INFILT ONE (13:03)
[2016-09-08] MEDS ORDERED: *HR* Succinylcholine 200 MG/10 ML VIAL IVP ONE (13:03)
[2016-09-08] MEDS ORDERED: Lidocaine -MPF 2% 5 ML VIAL INFILT ONE (13:03)
[2016-09-08] MEDS ORDERED: *HR* Propofol 200 MG/20 ML VIAL IVP ONE (13:03)
--- NOTE | 2016-09-08 13:18 | Anesthesia Evaluation PreOp ---
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 Other Medical History: Renal (ckd), Diabetes Type II (64 on floor, rec'd dextrose, now 134) Anesthesia History: No Prior Anesthetic Complications, Past Anesthesia (cscope, tm, mastoid) Alcohol Use: none Drug use: none Medications and Allergies Albuterol Sulfate [Proair Hfa] 2 puff IH Q4H PRN 07/29/16 [History] Aspirin 81 mg PO DAILY 07/29/16 [History] Atorvastatin [Lipitor] 40 mg PO HS 07/29/16 [History] Celecoxib [Celebrex] 200 mg PO DAILY 07/29/16 [History] Cilostazol [Pletal] 100 mg PO BID 07/29/16 [History] Gabapentin [Neurontin] 100 mg PO QAM 07/29/16 [History] GlipiZIDE [Glipizide ER] 10 mg PO BID 07/29/16 [History] Insulin DETEMIR [Levemir] 40 unit SQ HS 07/29/16 [History] Isosorbide MONOnitrate (24 HR) [Imdur] 30 mg PO DAILY 07/29/16 [History] Melatonin 5 mg PO HS PRN 07/29/16 [History] Metoprolol XL (24 HR) Succ [Toprol Xl] 25 mg PO DAILY 07/29/16 [History] Pioglitazone [Actos] 30 mg PO DAILY 07/29/16 [History] Sertraline [Zoloft] 100 mg PO DAILY 07/29/16 [History] Umeclidinium [place] [Incruse Ellipta] 1 puff IH DAILY 07/29/16 [History] amLODIPine [Norvasc] 2.5 mg PO DAILY 07/29/16 [History] levoFLOXacin [Levofloxacin] 500 mg PO DAILY #7 tablet 08/27/16 [Rx] Gabapentin [Neurontin] 200 mg PO HS 09/08/16 [History] Lisinopril-HCTZ 20-12.5 [Prinzide 20-12.5] 1 tab PO DAILY 09/08/16 [History] Allergies Cefaclor [From Ceclor] Allergy (Verified 09/08/16 09:43) Chest Pain metformin Allergy (Verified 09/08/16 09:43) Diarrhea - Meds/Allergy Pre-op Review Medications Reviewed: Yes Allergies Reviewed: Yes Beta Blockers on Current Med List: Yes If Beta Blockers taken, Date/Time (Last Dose taken): metoprolol 2200 on 09/07 Anesthesia Results - Labs Laboratory Tests 07/21/16 08/25/16 08/27/16 08:57 17:50 06:07 Hgb 11.0 L Hct 34.2 L Plt Count 170 PT 12.8 H INR 1.2 APTT 33.2 Sodium Potassium Creatinine Hemoglobin A1c 7.6 H 08/27/16 06:07 Hgb Hct Plt Count PT INR APTT Sodium 138 Potassium 4.2 D Creatinine 1.13 Hemoglobin A1c - Imaging EKG: report reviewed (sr) Anesthesia Exam Vital Signs/O2 Sat/Glucose, Most Current Temp Pulse Resp BP Pulse Ox 09/08/16 13:11 69 18 105/55 94 09/08/16 11:56 97.4 F L 70 18 103/48 94 Height: 1.75 Weight: 106 NPO (# of Hours): >8 - HEENT Pupil (Motor): Pupils equal, EOMI Mallampati: III Teeth: Edentulous Oral Opening: Greater than 3 - WAREHOUSE DRIVER LOC: Oriented WAREHOUSE DRIVER Motor: Normal RUE, Normal LUE, Normal RLE, Normal LLE, Normal Face WAREHOUSE DRIVER Sensory: Normal: RUE, LUE, RLE, LLE, Face - Cardiac Rhythm: Regular Murmur: None - Pulmonary Breath Sounds: bilateral Clear Respiratory Effort: Symmetrical Anesthesia Assess/Plan ASA Score: 4 Modified Apollo Scale for Level of Consciousness: Cooperative, oriented, and tranquil Anesthetic Plan: General Monitoring Plan: Standard Monitors Recovery Plan: PACU
[2016-09-08] MEDS ORDERED: *HR* FentaNYL (PF) 100 MCG/2 ML VIAL ONE ×2 (13:53→14:47)
[2016-09-08] MEDS ORDERED: Indomethacin 50 MG SUPP.RECT RC ONE (13:57)
--- NOTE | 2016-09-08 15:13 | Anesthesia Evaluation Post Op ---
Date of Encounter: 09/08/16 Time of Encounter: 15:13 - Vital Signs Vital Signs: vss - Lungs Lungs: Clear Ascult./Percussion - Airway Airway: Non-obstructed - Cardiovascular Baseline Rhythm - Mental Status Mental Status: Asleep with brisk response to light stimulation - Pain Pain Scale used: Mason (Faces) - Nausea Vomiting Nausea Vomiting: Not Present - Discharge PostOp Status: Transfer Patient to floor
--- NOTE | 2016-09-08 16:11 | General Surg History&Physical ---
Date of Encounter: 09/08/16 Time of Encounter: 15:00 Assessment and Plan (1) Diabetes mellitus Current Visit: No Status: Chronic The assessment and plan as outlined above was discussed with the patient and/or family members who expressed understanding and agreement. All questions were answered. 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 All questions were answered. consult GI for ercp npo ivf hydration (3) COPD (chronic obstructive pulmonary disease) Current Visit: Yes Status: Chronic The assessment and plan as outlined above was discussed with the patient and/or family members who expressed understanding and agreement. All questions were answered. continue home inhalers therapy IS Qualifiers: COPD type: unspecified COPD Qualified Code(s): J44.9 - Chronic obstructive pulmonary disease, unspecified (4) Depression Current Visit: Yes Status: Acute The assessment and plan as outlined above was discussed with the patient and/or family members who expressed understanding and agreement. All questions were answered. continue home meds Qualifiers: Depression Type: unspecified Qualified Code(s): F32.9 - Major depressive disorder, single episode, unspecified (5) Hyperlipidemia Current Visit: Yes Status: Acute The assessment and plan as outlined above was discussed with the patient and/or family members who expressed understanding and agreement. All questions were answered. continue home medication Qualifiers: Hyperlipidemia type: other hyperlipidemia Qualified Code(s): E78.4 - Other hyperlipidemia History of Present Illness Chief complaint: CBD stone HPI: Mr. Quiroz is a 71 year old male who was seen by myself in outpatient basis for cbd stone found on CT scan. The scan was done for hematuria and incidently noted choledocholithiasis. The patient has denied any symptoms of RUQ pain, nausea, diarrhea. He was admitted on 08/25/16 for encephalopathy due to uti and nestor. He presents today for choledocholithiasis. He still has no symptoms. Past Med Surg Social Fam HX - Past Medical History Source: patient Medical history: COPD, coronary artery disease, diabetes, hyperlipidemia Psychiatric history: anxiety, depression - Past Surgical History Surgical History: other (colonoscopy, ear surgery, tonsillectomy, ex lap) - Social History Smoking Status: Former smoker Smokeless Tobacco Status: No Alcohol use: none Drug use: none - Family History Mother Hx Family Neurologic Disorders: Yes (cva) Medications and Allergies Albuterol Sulfate [Proair Hfa] 2 puff IH Q4H PRN 07/29/16 [History] Aspirin 81 mg PO DAILY 07/29/16 [History] Atorvastatin [Lipitor] 40 mg PO HS 07/29/16 [History] Celecoxib [Celebrex] 200 mg PO DAILY 07/29/16 [History] Cilostazol [Pletal] 100 mg PO BID 07/29/16 [History] Gabapentin [Neurontin] 100 mg PO QAM 07/29/16 [History] GlipiZIDE [Glipizide ER] 10 mg PO BID 07/29/16 [History] Insulin DETEMIR [Levemir] 40 unit SQ HS 07/29/16 [History] Isosorbide MONOnitrate (24 HR) [Imdur] 30 mg PO DAILY 07/29/16 [History] Melatonin 5 mg PO HS PRN 07/29/16 [History] Metoprolol XL (24 HR) Succ [Toprol Xl] 25 mg PO DAILY 07/29/16 [History] Pioglitazone [Actos] 30 mg PO DAILY 07/29/16 [History] Sertraline [Zoloft] 100 mg PO DAILY 07/29/16 [History] Umeclidinium [place] [Incruse Ellipta] 1 puff IH DAILY 07/29/16 [History] amLODIPine [Norvasc] 2.5 mg PO DAILY 07/29/16 [History] levoFLOXacin [Levofloxacin] 500 mg PO DAILY #7 tablet 08/27/16 [Rx] Gabapentin [Neurontin] 200 mg PO HS 09/08/16 [History] Lisinopril-HCTZ 20-12.5 [Prinzide 20-12.5] 1 tab PO DAILY 09/08/16 [History] Allergies Cefaclor [From Ceclor] Allergy (Verified 09/08/16 09:43) Chest Pain metformin Allergy (Verified 09/08/16 09:43) Diarrhea Review of Systems All systems PM: reviewed and no additional remarkable complaints except as stated All systems PM: A 10-system review of systems was performed and is negative for pertinent findings except as documented above in the HPI. General Surgery Exam Initial Vital Signs Temp Pulse Resp BP Pulse Ox 97.8 F 64 18 129/63 93 09/08/16 08:53 09/08/16 08:53 09/08/16 08:53 09/08/16 08:53 09/08/16 08:53 - General physical appearance well developed, well nourished, no distress, no pain - Eyes PERRL, normal ocular movement - ENT normal mucosa, normocephalic - Neck trachea midline - Respiratory rales: bilateral - Cardiovascular Cardiovascular exam: Present: RRR, no murmurs/rubs/gallops - Abdomen Abdomen general surgery: Present: bowel sounds present, soft, non tender. Absent: guarding, rebound - Integumentary Integumentary general surgery: Present: warm and dry, no abnormal pigmentation - Neurologic Present: CN 2-12 grossly intact - Musculoskeletal Present: normal gait, normal posture - Psychiatric Psychiatric general surgery: Present: A&Ox3, speech is normal Results - Labs All other labs normal.
[2016-09-08] MEDS ORDERED: Melatonin 3 MG TABLET PO PRN (21:00)
[2016-09-08] MEDS ORDERED: Gabapentin 100 MG CAPSULE PO SCH (21:00)
[2016-09-09] MEDS: 0.9 % Sodium Chloride 1,000 ML IVC SCH (04:27)
[2016-09-09] MEDS: levoFLOXacin 500 MG TABLET PO SCH ×2 (04:32→09:22)
[2016-09-09 06:11] LABS: Basophils # 0.1 K/mcL (0.0-0.2); Basophils % 0.4 %; Eosinophils # 0.1 K/mcL (0.0-0.6); Eosinophils % 0.8 %; Hematocrit 36.2 % (37.5-50.1); Hemoglobin 11.7 g/dL (12.9-16.9); Immature Granulocytes % 0.4 % (0-4); Lymphocytes # 1.7 K/mcL (0.6-4.6); Lymphocytes % 10.2 %; Mean Corpuscular HGB Conc 32.3 g/dL (31.6-35.5); Mean Corpuscular Hemoglobin 28.6 pg (28.0-33.3); Mean Corpuscular Volume 88.5 fL (83.0-100.0); Neutrophils # 13.9 K/mcL (1.6-8.9); Platelet Count 286 K/mcL (140-400); Red Blood Count 4.09 M/mcL (4.19-5.50); Red Cell Distribution Width 14.5 % (11.5-14.5); Segmented Neutrophils % 82.2 %
[2016-09-09 06:25] LABS: Albumin/Globulin Ratio 0.8 (1.1-2.2); Bilirubin,Direct 0.3 mg/dL (0.0-0.5); Bilirubin,Indirect 0.4 mg/dL (0.0-1.2); Bilirubin,Total 0.7 mg/dL (0.2-1.2); Globulin 3.7 g/dL (2.4-3.5); Total Protein 6.7 g/dL (6.0-8.3)
[2016-09-09] MEDS ORDERED: Gabapentin 100 MG CAPSULE PO SCH ×2 (09:00→21:00)
[2016-09-09] MEDS ORDERED: Pantoprazole 40 MG VIAL IVP SCH (09:00)
[2016-09-09] MEDS ORDERED: amLODIPine 5 MG TABLET PO SCH (09:00)
[2016-09-09] MEDS ORDERED: Isosorbide MONOnitrate (24 HR) 30 MG TAB.ER.24H PO SCH (09:00)
[2016-09-09] MEDS ORDERED: Lisinopril-HCTZ 20-12.5mg TABLET PO SCH (09:00)
[2016-09-09] MEDS ORDERED: Metoprolol XL (24 HR) Succ 25 MG TAB.ER.24H PO SCH (09:00)
[2016-09-09] MEDS ORDERED: Acetaminophen 325 MG TABLET PO ONE (09:58)
[2016-09-09] MEDS ORDERED: *HR* FentaNYL (PF) 100 MCG/2 ML VIAL ONE (12:32)
[2016-09-09] MEDS ORDERED: *HR* Midazolam HCl 2 MG/2 ML VIAL ONE (12:32)
[2016-09-09] MEDS ORDERED: *HR* Heparin 5,000 UNIT/ML VIAL ONE (12:32)
[2016-09-09] MEDS ORDERED: *HR* Phenylephrine 10 MG/ML VIAL ONE (12:32)
[2016-09-09] MEDS ORDERED: *HR* Propofol 200 MG/20 ML VIAL IVP ONE (12:32)
[2016-09-09] MEDS ORDERED: EPHEDrine 50 MG/ML VIAL ONE (12:32)
[2016-09-09] MEDS ORDERED: Lidocaine -MPF 2% 2 ML VIAL ONE ×2 (12:32)
[2016-09-09] MEDS ORDERED: *HR* Rocuronium Bromide 50 MG/5 ML VIAL ONE (12:34)
[2016-09-09] MEDS ORDERED: Clindamycin 900 MG/50 ML 900 MG/50 ML IV.SOLN IVPB ONE (12:59)
[2016-09-09] MEDS ORDERED: Dexamethasone 4 MG/ML VIAL ONE (13:20)
[2016-09-09] MEDS ORDERED: Ondansetron 4 MG/2 ML VIAL ONE (13:20)
[2016-09-09] MEDS ORDERED: Neostigmine Methylsulfate 3 MG/3 ML SYRINGE ONE (13:25)
[2016-09-09] MEDS ORDERED: *HR* HYDROmorphone (PF) 1 MG/ML SYRINGE IVP PRN (13:37)
[2016-09-09] MEDS ORDERED: *HR* HYDROmorphone 2 MG/ML SYRINGE ONE (13:53)
--- NOTE | 2016-09-09 14:14 | Operative Note ---
Date of procedure: 09/09/16 Pre-op diagnosis: choledocholithiasis, cholelithiasis Post-op diagnosis: other (chronic cholecystitis, choledocholithiasis) Procedure: Laparoscopic cholecystectomy Complications: none immediate Anesthesia: GETA, local Local Anesthetics: 0.5% Sensorcaine HCL SubQ (cc) (30) Surgeon: Agnieszka Alexander Estimated blood loss (cc): 25 Specimen: gallbladder Condition: stable Disposition: PACU Procedure in Detail: The patient was brought into the operating suite and placed supine on the operating table. Sign-in was performed and everyone was in agreement. Anesthesia was induced and patient was endotracheally intubated by anesthesia without incident and they also placed an OG tube. The abdomen was prepped and draped in the usual sterile fashion. A timeout was performed again everyone was in agreement. A supraumbilical incision was made through the skin into the subcutaneous tissue with an 11 blade. Towel clamps were placed on either side of the umbilicus for retraction. S retractors were used to dissect down to the anterior abdominal wall linea alba fascia. A Veress needle was placed through this incision and a water drop test confirmed placement and the abdomen was insufflated. The abdomen was entered with a 5 mm 0 degree laparoscope on a 5 mm X-tino trocar. The area and entry was visualized was no bleeding and no apparent bowel injury. A 5 mm subxiphoid port was placed under direct visualization after first incising the skin with an 11 blade. A right upper quadrant subcostal position midclavicular line 5 mm port was placed under direct visualization after first incising skin with 11 blade. The laparoscope was placed in this and we exchanged the supraumbilical port for a 12 mm port under direct visualization. The last 5 mm port was placed in the right upper quadrant subcostal position anterior axillary line after first incising the skin with an 11 blade. The patient was placed in steep reverse Trendelenburg left side down position. The dome of the gallbladder was grasped and retracted cephalad. Omental adhesions to the body and infundibulum of the gallbladder were taken down bluntly with the [place]. The infundibulum was grasped and retracted laterally. Using the [place] we dissected out the cystic duct and cystic artery. Three 5 mm hemoclips were placed distally on the cystic duct one proximally and it was transected with curved scissors. The cystic artery was doubly clipped proximally, once distally and transected with curved scissors. The gallbladder was removed off the cystic plate with the Bovie. Any bleeding points were stopped with the Bovie. The gallbladder was placed in a laparoscopic Endo Catch bag and removed via the supraumbilical incision site. The inferior edge of the liver was bluntly retracted cephalad and the cystic plate was copiously irrigated with sterile saline. There was no bleeding or apparent bile leak from the cystic plate and the clips on the cystic artery and duct were intact. All irrigation was suctioned free from the abdomen. All insufflation was suctioned free from the abdomen and the ports removed. The abdominal wall at the supraumbilical incision site was closed with a 0 Vicryl [id number] stitch. 30 mL of 0.5% Marcaine was injected subcutaneously at the 4 port sites. The skin at the three 5 mm port sites were closed with 4-0 Monocryl interrupted subcuticular stitches. The skin at the supraumbilical incision site was closed with a 4-0 Monocryl running subcuticular stitch. Steri -Strips were applied to all wounds. The patient was awoken in the operating suite having tolerated the procedure well and were taken to PACU in stable condition after all lap and ensuring counts were correct at the end of the case.
--- NOTE | 2016-09-09 14:21 | Discharge Summary ---
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 (2) Choledocholithiasis Priority: Primary Status: Acute (3) COPD (chronic obstructive pulmonary disease) Priority: Secondary Status: Chronic Qualifiers: COPD type: unspecified COPD Qualified Code(s): J44.9 - Chronic obstructive pulmonary disease, unspecified (4) Depression Priority: Secondary Status: Chronic Qualifiers: Depression Type: unspecified Qualified Code(s): F32.9 - Major depressive disorder, single episode, unspecified (5) Hyperlipidemia Priority: Secondary Status: Chronic Qualifiers: Hyperlipidemia type: other hyperlipidemia Qualified Code(s): E78.4 - Other hyperlipidemia (6) S/P laparoscopic cholecystectomy Priority: Primary Status: Acute (7) S/P ERCP Priority: Primary Status: Acute - Discharge Medications Prescriptions: OxyCODONE/APAP 5/325 [Percocet 5/325 MG] 1 each PO Q4HR PRN #30 tablet PRN Reason: Pain Docusate [Colace] 100 mg PO BID #30 capsule Home Medications: Albuterol Sulfate [Proair Hfa] 2 puff IH Q4H PRN 07/29/16 [History] Aspirin 81 mg PO DAILY 07/29/16 [History] Atorvastatin [Lipitor] 40 mg PO HS 07/29/16 [History] Celecoxib [Celebrex] 200 mg PO DAILY 07/29/16 [History] Cilostazol [Pletal] 100 mg PO BID 07/29/16 [History] Gabapentin [Neurontin] 100 mg PO QAM 07/29/16 [History] GlipiZIDE [Glipizide ER] 10 mg PO BID 07/29/16 [History] Insulin DETEMIR [Levemir] 40 unit SQ HS 07/29/16 [History] Isosorbide MONOnitrate (24 HR) [Imdur] 30 mg PO DAILY 07/29/16 [History] Melatonin 5 mg PO HS PRN 07/29/16 [History] Metoprolol XL (24 HR) Succ [Toprol Xl] 25 mg PO DAILY 07/29/16 [History] Pioglitazone [Actos] 30 mg PO DAILY 07/29/16 [History] Sertraline [Zoloft] 100 mg PO DAILY 07/29/16 [History] Umeclidinium [place] [Incruse Ellipta] 1 puff IH DAILY 07/29/16 [History] amLODIPine [Norvasc] 2.5 mg PO DAILY 07/29/16 [History] levoFLOXacin [Levofloxacin] 500 mg PO DAILY #7 tablet 08/27/16 [Rx] Gabapentin [Neurontin] 200 mg PO HS 09/08/16 [History] Lisinopril-HCTZ 20-12.5 [Prinzide 20-12.5] 1 tab PO DAILY 09/08/16 [History] Docusate [Colace] 100 mg PO BID #30 capsule 09/09/16 [Rx] OxyCODONE/APAP 5/325 [Percocet 5/325 MG] 1 each PO Q4HR PRN #30 tablet 09/09/16 [Rx] Allergies/Adverse Reactions: Allergies Cefaclor [From Ceclor] Allergy (Verified 09/08/16 09:43) Chest Pain metformin Allergy (Verified 09/08/16 09:43) Diarrhea General Surgery Exam Initial Vital Signs Temp Pulse Resp BP Pulse Ox 97.8 F 64 18 129/63 93 09/08/16 08:53 09/08/16 08:53 09/08/16 08:53 09/08/16 08:53 09/08/16 08:53 - General physical appearance well developed, well nourished, no distress - Eyes PERRL, normal ocular movement - ENT normal mucosa, normocephalic - Neck trachea midline - Respiratory normal expansion, clear to auscultation - Cardiovascular Cardiovascular exam: Present: RRR, no murmurs/rubs/gallops - Abdomen Abdomen general surgery: Present: bowel sounds present, soft (appropriate post op tenderness), tender (appropriate post op tenderness). Absent: guarding, rebound - Incision Incision: Present: clean and dry, intact - Integumentary Integumentary general surgery: Present: warm and dry, no abnormal pigmentation - Neurologic Present: CN 2-12 grossly intact, normal coordination - Musculoskeletal Present: normal gait, normal posture Date of admission: 09/08/16 08:15 Primary care physician: Darwin Malagon Consults: 09/08/16 08:58 Consult to Nutrition [CONS] Routine Comment: Consulting Provider: NUTRITION Reason for Dietary Consult: MST Score 09/08/16 10:02 Consult to Gastroenterology [CONS] Routine Consulting Provider: [facility] Reason for Consult: CBD stone Time Notified: 08:20 Call Completed: Yes Discharging clinician: Agnieszka Alexander Anticipated date of discharge: 09/10/16 - Patient Status Disposition: Home, Self-Care Condition: Good Overall status at discharge: patient is progressing back to baseline - Discharge Instructions Instructions: Laparoscopic Cholecystectomy (DC), Endoscopic Biliary Stenting ( DC), Endoscopic Retrograde Cholangiopancreatography (DC) Follow Up With: Jeison Ontiveros MD [Primary Care Provider] - Luis Avila MD [Partnered Physician] - (6 weeks, s/p ERCP, stent placement) Agnieszka Alexander MD [Partnered Physician] - (or Brea Olson in two weeks) Additional Instructions: have liver function labs drawn in three days at any [facility] lab No lifting more than 20 pounds for 2 weeks. Okay to take a shower in 24 hours. No tub baths or pools for 1 week. Okay to ride in the car wearing a seatbelt and climb steps. No driving until off narcotics for 24 hours and able to react safely Remove Steri-Strips in 1 week. - Diet and Activity Activity: increase activity as tolerated Diet: diabetic diet - Hospital Course Hospital course: Mr. Quiroz is a 71 year old male who was noted on outpatient CT scan to have choledocholithiasis. MRCP was then done which showed a 9 mm cbd stone and cholelithiasis. He was admitted thursday and underwent ercp, stone extraction, stent placement. He underwent laparoscopic cholecystomy on 09.09.16. While in the hospital he was on po levaquin for his recent uti. He was started on a diet and advanced as he tolerated. Pain was controlled with initially iv then po medication. - Time Spent with Patient Total time spent providing and/or coordinating discharge services: Labs on day of discharge: Labs from last 24 hours 09/09/16 09/09/16 09/09/16 05:39 05:19 05:19 WBC 16.9 H RBC 4.09 L Hgb 11.7 L Hct 36.2 L MCV 88.5 MCH 28.6 MCHC 32.3 RDW 14.5 Plt Count 286 MPV 9.0 L Immature Gran % 0.4 Seg Neutrophils % 82.2 Lymphocytes % 10.2 Monocytes % 6.0 Eosinophils % 0.8 Basophils % 0.4 Neutrophils # 13.9 H Lymphocytes # 1.7 Monocytes # 1.0 Eosinophils # 0.1 Basophils # 0.1 POC Glucose 126 H Total Bilirubin 0.7 Direct Bilirubin 0.3 Indirect Bilirubin 0.4 AST 22 ALT 17 Alkaline Phosphatase 55 Serum Total Protein 6.7 Albumin 3.0 L Globulin 3.7 H Albumin/Globulin Ratio 0.8 L Lipase 62 09/08/16 09/08/16 20:02 16:57 WBC RBC Hgb Hct MCV MCH MCHC RDW Plt Count MPV Immature Gran % Seg Neutrophils % Lymphocytes % Monocytes % Eosinophils % Basophils % Neutrophils # Lymphocytes # Monocytes # Eosinophils # Basophils # POC Glucose 301 H 174 H Total Bilirubin Direct Bilirubin Indirect Bilirubin AST ALT Alkaline Phosphatase Serum Total Protein Albumin Globulin Albumin/Globulin Ratio Lipase - Impressions ITS Impressions Cath/Invasive Procedure 09/08/16 00:00 IMPRESSION: Fluoroscopy provided for ERCP procedure. Please see the intraoperative note for complete details. D/ / 09/08/2016 16:47:01 Kar Gomez MD / Jaquelin Garvin Interpreting Provider: Kar Gomez MD
--- NOTE | 2016-09-09 15:01 | Anesthesia Evaluation Post Op ---
Date of Encounter: 09/09/16 Time of Encounter: 15:00 - Vital Signs Vital Signs: Vital Signs/O2 Sat/Glucose, Most Current Temp Pulse Resp BP Pulse Ox 09/09/16 14:48 98 F 81 18 115/54 93 09/09/16 14:38 82 18 114/53 94 09/09/16 14:28 84 18 111/51 93 09/09/16 14:18 98.3 F 86 18 119/56 97 - Lungs Lungs: Clear Ascult./Percussion - Airway Airway: Non-obstructed - Cardiovascular Regular Rate - Mental Status Mental Status: Alert & Oriented, Answers Appropriately - Pain Pain Scale: 0 - Nausea Vomiting Nausea Vomiting: Not Present - Hydration Hydration: Ice chips - Discharge PostOp Status: Transfer Patient to floor
[2016-09-09] MEDS ORDERED: Melatonin 3 MG TABLET PO PRN (18:20)
[2016-09-09] MEDS ORDERED: Dextrose Gel 15 GM PO PRN ×2 (18:20)
[2016-09-09] MEDS ORDERED: *HR* OxyCODONE/APAP 5/325 TABLET PO PRN (18:20)
[2016-09-09] MEDS ORDERED: *HR* Morphine 2 MG/ML SYRINGE IVP PRN (18:20)
[2016-09-09] MEDS ORDERED: Naloxone 0.4 MG/ML INJ IVP PRN (18:20)
[2016-09-09] MEDS ORDERED: *HR* Dextrose 50 % in Water (Syg) 50 ML SYRINGE IVP PRN (18:20)
[2016-09-09] MEDS ORDERED: Ondansetron 4 MG/2 ML VIAL IVP PRN (18:20)
[2016-09-09] MEDS ORDERED: D5% in Water 1,000 ML IVC PRN (18:20)
[2016-09-10] MEDS: 0.9 % Sodium Chloride 1,000 ML IVC SCH (00:18)
[2016-09-10 06:20] LABS: Basophils % 0.1 %; Hematocrit 35.8 % (37.5-50.1); Hemoglobin 11.7 g/dL (12.9-16.9); Immature Granulocytes % 0.5 % (0-4); Lymphocytes # 1.6 K/mcL (0.6-4.6); Lymphocytes % 11.1 %; Mean Corpuscular HGB Conc 32.7 g/dL (31.6-35.5); Mean Corpuscular Volume 88.8 fL (83.0-100.0); Mean Platelet Volume 9.4 fL (9.4-12.4); Monocytes # 1.1 K/mcL (0.0-1.3); Monocytes % 7.4 %; Neutrophils # 11.8 K/mcL (1.6-8.9); Platelet Count 252 K/mcL (140-400); Red Blood Count 4.03 M/mcL (4.19-5.50); Red Cell Distribution Width 14.6 % (11.5-14.5); Segmented Neutrophils % 80.9 %
[2016-09-10 06:56] LABS: Alanine Aminotransferase 42 Units/L (0-55); Albumin 3.1 g/dL (3.5-5.0); Albumin/Globulin Ratio 0.8 (1.1-2.2); Alkaline Phosphatase 58 Units/L (38-126); Aspartate Amino Transferase 53 Units/L (5-34); BUN/Creatinine Ratio 19 (6-26); Bilirubin,Direct 0.3 mg/dL (0.0-0.5); Bilirubin,Indirect 0.2 mg/dL (0.0-1.2); Bilirubin,Total 0.5 mg/dL (0.2-1.2); Blood Urea Nitrogen 19 mg/dL (8-26); Carbon Dioxide 27 mEq/L (19-29); Chloride 109 mEq/L (98-109); Globulin 3.8 g/dL (2.4-3.5); Glucose 130 mg/dL (70-99); Osmolality,Calculated 300 (280-300); Potassium 4.4 mEq/L (3.5-4.5); Sodium 143 mEq/L (136-145); Total Protein 6.9 g/dL (6.0-8.3); eGFR For African Americans > 60 (> 60); eGFR For Non-African Americans > 60 (> 60)
[2016-09-10] MEDS ORDERED: amLODIPine 5 MG TABLET PO SCH (09:00)
[2016-09-10] MEDS ORDERED: Metoprolol XL (24 HR) Succ 25 MG TAB.ER.24H PO SCH (09:00)
[2016-09-10] MEDS ORDERED: Lisinopril-HCTZ 20-12.5mg TABLET PO SCH (09:00)
[2016-09-10] MEDS ORDERED: Gabapentin 100 MG CAPSULE PO SCH (09:00)
[2016-09-10] MEDS ORDERED: Isosorbide MONOnitrate (24 HR) 30 MG TAB.ER.24H PO SCH (09:00)
[2016-09-10] MEDS ORDERED: Pantoprazole 40 MG VIAL IVP SCH (09:00)
[2016-09-10] MEDS ORDERED: levoFLOXacin 500 MG TABLET PO SCH (09:00)
[2016-09-10 11:17] VITALS: BP 161/78
== END 2016-09-10 13:04 | disposition home or self-care (01) ==
LOC: 3ANU
PROVIDERS: ADMIT Surgery; ATTEND Surgery

== ENCOUNTER 2016-11-24 08:40 | Inpatient (IN) ==
[2016-11-24] MEDS ORDERED: Albuterol 2.5 MG/3 ML NEBULIZER IH ONE ×2 (09:11→10:55)
[2016-11-24] MEDS ORDERED: Levofloxacin 500 MG/100 ML 500 MG/100 ML BAG IVPB ONE (09:11)
[2016-11-24] MEDS ORDERED: Ringers Solution, Lactated 1,000 ML IVC SCH ×2 (09:15→11:00)
--- NOTE | 2016-11-24 09:21 | Anesthesia Evaluation PreOp ---
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 Significant HX Other Medical History: Renal, Diabetes Type II Anesthesia History: No Prior Anesthetic Complications, Past Anesthesia Alcohol Use: none Drug use: none Medications and Allergies Albuterol Sulfate [Proair Hfa] 2 puff IH Q4H PRN 07/29/16 [History] Aspirin 81 mg PO DAILY 07/29/16 [History] Atorvastatin [Lipitor] 40 mg PO HS 07/29/16 [History] Celecoxib [Celebrex] 200 mg PO DAILY 07/29/16 [History] Cilostazol [Pletal] 100 mg PO BID 07/29/16 [History] GlipiZIDE [Glipizide ER] 10 mg PO BID 07/29/16 [History] Insulin DETEMIR [Levemir] 30 unit SQ HS 07/29/16 [History] Isosorbide MONOnitrate (24 HR) [Imdur] 30 mg PO DAILY 07/29/16 [History] Metoprolol XL (24 HR) Succ [Toprol Xl] 25 mg PO DAILY 07/29/16 [History] Pioglitazone [Actos] 30 mg PO DAILY 07/29/16 [History] Sertraline [Zoloft] 100 mg PO DAILY 07/29/16 [History] Umeclidinium [place] [Incruse Ellipta] 1 puff IH DAILY 07/29/16 [History] amLODIPine [Norvasc] 2.5 mg PO DAILY 07/29/16 [History] Gabapentin [Neurontin] 100 mg PO TID 09/08/16 [History] Betamethasone [place]ica 0.1% Crm [Valisone 0.1%] 1 appl TP ONCE 11/03/16 [History] Ketoconazole 2% CRM [Nizoral Cream] 1 appl TP BID 11/03/16 [History] Lisinopril [Zestril] 20 mg PO DAILY 11/03/16 [History] Oxycodone HCl/Acetaminophen [Percocet 5-325 mg Tablet] 1 each PO Q4H PRN #25 tablet 11/03/16 [Rx] 3 Allergy/AdvReac Type Severity Reaction Status Date / Time [facility] AdvReac Chest Pain Verified 11/24/16 09:02 metformin AdvReac Diarrhea Verified 11/24/16 09:02 - Meds/Allergy Pre-op Review Medications Reviewed: Yes Allergies Reviewed: Yes Beta Blockers on Current Med List: Yes If Beta Blockers taken, Date/Time (Last Dose taken): 11/23/2016 at 2130 Anesthesia Results - Labs Laboratory Tests 08/25/16 09/10/16 10/29/16 17:50 05:34 10:50 WBC 8.6 Hgb 12.3 L Hct 38.6 Plt Count 238 PT 12.8 H INR 1.2 APTT 33.2 Sodium 143 Potassium 4.4 BUN 19 Creatinine 0.99 - Imaging EKG: report reviewed (08/25/2016 SINUS RHYTHM WITH OCCASIONAL VENTRICULAR PREMATURE COMPLEXES INFERIOR MYOCARDIAL INFARCTION, PROBABLY OLD) Additional studies: 09/24/2015 Echo Impressions: LVEF 60%. Normal left ventricular size and systolic function. There is evidence of moderate diastolic dysfunction of the left ventricle. Dilated RV with normal function. No significant valvular dysfunction. Estimated RVSP was 19 mmHg. No pulmonary hypertension. The IVC is not dilated. 04/19/2015 Stress Impression: The exercise capacity was fair. Rare PVCs noted prior to exam beginning. Frequent PVCs were noted during exercise and recovery. The patient had a widened pulse pressure prior to the test which became more pronounced with exercise. Baseline BP 152/58. BP at peak exercise 214/38. Exercise ECG is negative for ischemia. Gated LVEF = 54%. There is inferior hypokinesis. Perfusion imaging was positive for a large myocardial infarction involving the inferior wall. There is no evidence of reversible myocardial ischemia. Clinical correlation suggested. Consider obtaining an echocardiogram if clinically indicated. Dr. Gage notified of abnormal results via [facility]. Anesthesia Exam O2 Sat Height 1.73 m Height 1.73 m Weight 107.501 kg Weight 107.501 kg O2 Sat by Pulse Oximetry 95 Vital Signs Temp Pulse Resp BP Pulse Ox 98.5 F 67 18 136/63 95 11/24/16 08:59 11/24/16 08:59 11/24/16 08:59 11/24/16 08:59 11/24/16 08:59 Blood Glucose* 123 Height: 5'8.25" Weight: 237 lbs NPO (# of Hours): 8 Pain Scale: 0 Pain Scale Used: Numeric (1 - 10) - HEENT Pupil (Motor): EOMI Mallampati: II Teeth: Edentulous Oral Opening: Greater than 3 - GUN STOCKER LOC: Oriented GUN STOCKER Motor: Normal RUE, Normal LUE, Normal RLE, Normal LLE, Normal Face GUN STOCKER Sensory: Normal: RUE, LUE, Face, Deficit: RLE, LLE - Cardiac Rhythm: Regular Murmur: None - Pulmonary Breath Sounds: bilateral Clear Respiratory Effort: Symmetrical Anesthesia Assess/Plan ASA Score: 3 Modified Carlos Scale for Level of Consciousness: Cooperative, oriented, and tranquil Anesthetic Plan: General Monitoring Plan: Standard Monitors, A-Line Recovery Plan: PACU
--- NOTE | 2016-11-24 09:49 | History & Physical Report ---
Date of Encounter: 11/24/16 Time of Encounter: 09:49 24 Hour HP Update - Instructions Instructions: If the History and Physical is less than 30 days old and was completed prior to A.M. admission and or procedure and has NOT been updated on calendar day of procedure please complete this update prior to performing procedure. - Update Patient reports changes in Medical Condition: No Changes in examination, assessment, or condition: No Changes in Medication: No Preop tests/diagnostics Reviewed: Yes Surgery Remains Indicated: Yes Consent for Planned Operative Procedure(s) Verified: Yes - Pre-Operative Checklist Preoperative Checklist Indicated: Yes Prophylactic Antibiotic Ordered: Yes Home Medications Include Beta Letty: Yes Is VTE Prophylaxis Indicated?: Yes
[2016-11-24] MEDS ORDERED: *HR* Propofol 200 MG/20 ML VIAL IVP ONE (10:17)
[2016-11-24] MEDS ORDERED: *HR* Rocuronium Bromide 50 MG/5 ML VIAL ONE ×2 (10:17→12:55)
[2016-11-24] MEDS ORDERED: *HR* HYDROmorphone 2 MG/ML SYRINGE ONE (10:17)
[2016-11-24] MEDS ORDERED: *HR* FentaNYL (PF) 100 MCG/2 ML VIAL ONE ×2 (10:17→12:58)
[2016-11-24] MEDS ORDERED: Lidocaine -MPF 2% 2 ML VIAL ONE (10:17)
[2016-11-24] MEDS ORDERED: EPHEDrine 50 MG/ML VIAL ONE (10:23)
[2016-11-24] MEDS ORDERED: Heparin 1,000 UNITS/500 mL NS 500 ML ONE (10:49)
[2016-11-24] MEDS ORDERED: *HR* Meperidine 25 MG/ML SYRINGE IVP PRN (10:55)
[2016-11-24] MEDS ORDERED: *HR* HYDROmorphone (PF) 1 MG/ML SYRINGE IVP PRN (10:55)
[2016-11-24] MEDS ORDERED: Ondansetron 4 MG/2 ML VIAL IVP ONE (10:55)
[2016-11-24] MEDS ORDERED: Naloxone 0.4 MG/ML INJ IVP PRN ×2 (10:55→16:54)
[2016-11-24] MEDS ORDERED: *HR* Labetalol 20 MG/4 ML SYRINGE IVP PRN (10:55)
[2016-11-24] MEDS ORDERED: Dexamethasone 4 MG/ML VIAL ONE (11:56)
[2016-11-24] MEDS ORDERED: Ondansetron 4 MG/2 ML VIAL ONE (11:56)
[2016-11-24] MEDS ORDERED: Neostigmine Methylsulfate 3 MG/3 ML SYRINGE ONE (14:50)
--- NOTE | 2016-11-24 15:40 | Operative Note ---
Date of procedure: 11/24/16 Pre-op diagnosis: Right upper tract urothelial cancer Post-op diagnosis: same Procedure: Right hand-assisted laparoscopic nephroureterectomy. Implants: 16 Citizen [place] Moore catheter. Complications: None. Anesthesia: DOMINIC Surgeon: Eulalio Figueroa Estimated blood loss (cc): 20 Specimen: Right kidney and ureter Condition: stable Disposition: PACU Procedure in Detail: Indications: Mr. Quiroz is a 71-year-old gentleman who has a history of hematuria. In workup he was noted to have a right upper tract urothelial cancer. He elected to undergo a right hand-assisted laparoscopic nephroureterectomy. He was informed of the risks of the surgery which include but are not limited to bleeding, infection, injury to other structures, need for further procedures, DVT, PE, urine leak, renal failure, risks otherwise unforeseen, and the risk of anesthesia. He is willing to proceed. Procedure: After informed consent was obtained the patient was brought back to the operating room placed in supine position. A timeout was performed. Gen. anesthesia was administered and an endotracheal tube was placed. He was then placed in the lithotomy position. His genitalia were prepped and draped in a sterile fashion. Cystoscopy was then performed. The anterior urethra showed no strictures. The prostate showed lateral lobe hyperplasia. Upon entering the bladder there was some blood emanating from the right ureteral orifice. The right ureteral orifice was cannulated with an open-ended catheter with the assistance of his wire. The scope was then removed. The resectoscope was then inserted. Using a Starks knife the ureteral orifice was dissected off the bladder in a circumferential fashion until fat was reached. The scope was then removed. The patient was then placed in the flank position with the right side up. He was secured to the operating room table. All pressure points were well-padded. He was then prepped and draped in a sterile fashion. A Moore catheter was inserted on the sterile field. Bloody urine returned. A right lower quadrant incision was then made which was approximately 8 cm. The subcutaneous tissues were dissected down using electrocautery. The anterior fascia was incised. Dissection was taken down to the level of the rectus muscles , but I did not need to divide them. The internal oblique fascia was opened as was the transverse abdominis fascia. The peritoneum was grasped below and opened with Metzenbaum scissors. The peritoneum was entered. There is no evidence of bowel injury. Defect in the bowel below my fingers I opened the peritoneum fully until my hand could enter the abdomen. The GelPort was then placed. The abdomen was insufflated. 12 mm incisions were made superior and lateral to the umbilicus and just below the costal margin. A 12 mm ports were placed under direct visual guidance. Once all the ports were placed I inserted a Harmonic scalpel and began the dissection. The colon was taken down along the white line of Toldt. This was brought to underneath the liver and reflected medially. During this fascia was then entered. The gonadal vein was identified and left medially while the ureter was lifted off of the psoas muscle. Dissection proceeded superiorly until the hilum was encountered. The artery was dissected free from the vein. Using the endovascular stapler the artery was secured. The vein was then taken separately. Dissection was then continued superiorly above the kidney freeing the kidney from the hepatorenal attachments. I then turned my attention to the lateral attachments and those were taken down using the Harmonic scalpel. Dissection was completed posterior to the kidney. The ureter was then traced down inferiorly. It was somewhat adherent to the iliac vessels but I was able to dissect it free and proceeded to move the dissection down inferiorly to the bladder. As I got closer into the pelvis and near the bladder mostly dissection was done bluntly. The ureter was eventually plucked off the bladder. The ureteral orifice was identified and was intact. A clip was placed across the ureter. Specimen was then placed in a LapSac. The kidney was removed. The port sites were closed using an 0 Vicryl suture using the Endo Close device. The wounds were irrigated. Hemostasis was excellent in the abdomen. The GelPort site was closed. The peritoneum was closed in a running fashion using an 0 Vicryl suture. The anterior fascia was closed in an interrupted fashion using #1 Vicryl. The wound was irrigated. Siena's fascia was closed in a running fashion using 3-0 Vicryl. The skin was closed using 4-0 Monocryl in a subcuticular fashion. The skin of the port sites was closed using a 4-0 Monocryl suture in a buried interrupted fashion. His abdomen was then washed and dried. Dermabond was applied to the wounds. All sponge needle and instrument counts were correct. The patient was then awakened from anesthesia and brought to recovery in good condition.
--- NOTE | 2016-11-24 16:23 | Anesthesia Evaluation Post Op ---
Date of Encounter: 11/24/16 Time of Encounter: 16:21 - Vital Signs Vital Signs: Vital Signs/O2 Sat, Most Current Temp Pulse Resp BP Pulse Ox 97.7 F 54 13 146/68 93 11/24/16 16:07 11/24/16 16:07 11/24/16 16:07 11/24/16 16:07 11/24/16 16:07 - Lungs Lungs: Clear Ascult./Percussion - Airway Airway: Non-obstructed - Cardiovascular Regular Rate - Mental Status Mental Status: Asleep with brisk response to light stimulation - Pain Pain Scale: 6 Pain Scale used: Numeric (1 - 10) - Nausea Vomiting Nausea Vomiting: Not Present - Hydration Hydration: NPO, Moore catheter - Discharge PostOp Status: Transfer Patient to floor
[2016-11-24] MEDS ORDERED: Ondansetron 4 MG/2 ML VIAL IVP PRN (16:54)
[2016-11-24] MEDS ORDERED: Dextrose Gel 15 GM PO PRN ×2 (16:54)
[2016-11-24] MEDS ORDERED: *HR* Dextrose 50 % in Water (Syg) 50 ML SYRINGE IVP PRN (16:54)
[2016-11-24] MEDS ORDERED: D5% in Water 1,000 ML IVC PRN (16:54)
[2016-11-24] MEDS: *HR* HYDROmorphone (PF) 1 MG/ML SYRINGE IVP PRN ×3 (17:08→23:15)
[2016-11-24] MEDS: 0.9 % Sodium Chloride 1,000 ML IVC SCH (17:09)
[2016-11-24] MEDS: Insulin LISPRO 300 UNITS/3 ML VIAL SQ SCH (18:07)
[2016-11-24] MEDS: Gabapentin 100 MG CAPSULE PO SCH (20:21)
[2016-11-25] MEDS: 0.9 % Sodium Chloride 1,000 ML IVC SCH ×3 (01:30→16:58)
[2016-11-25] MEDS: *HR* OxyCODONE Immed Rel 5 MG TABLET PO PRN (01:33)
[2016-11-25] MEDS: Insulin LISPRO 300 UNITS/3 ML VIAL SQ SCH ×4 (01:34→18:32)
[2016-11-25] MEDS: *HR* HYDROmorphone (PF) 1 MG/ML SYRINGE IVP PRN ×6 (04:14→21:43)
[2016-11-25 06:22] LABS: Basophils % 0.2 %; Eosinophils % 0.1 %; Hematocrit 33.3 % (37.5-50.1); Hemoglobin 10.5 g/dL (12.9-16.9); Immature Granulocytes % 0.2 % (0-4); Lymphocytes # 1.7 K/mcL (0.6-4.6); Lymphocytes % 14.2 %; Mean Corpuscular HGB Conc 31.5 g/dL (31.6-35.5); Mean Corpuscular Hemoglobin 28.6 pg (28.0-33.3); Mean Corpuscular Volume 90.7 fL (83.0-100.0); Mean Platelet Volume 10.4 fL (9.4-12.4); Monocytes # 1.2 K/mcL (0.0-1.3); Monocytes % 9.6 %; Neutrophils # 9.1 K/mcL (1.6-8.9); Platelet Count 186 K/mcL (140-400); Red Blood Count 3.67 M/mcL (4.19-5.50); Red Cell Distribution Width 14.9 % (11.5-14.5); Segmented Neutrophils % 75.7 %
[2016-11-25 06:40] LABS: Calcium 8.1 mg/dL (8.6-10.8); Potassium 4.8 mEq/L (3.5-4.5)
--- NOTE | 2016-11-25 07:17 | Urology Progress Note ---
Date of Encounter: 11/25/16 Time of Encounter: 07:14 - Assessment and Plan (1) Urothelial carcinoma of kidney Current Visit: Yes Status: Acute Assessment and plan: 71-year-old man status post right nephroureterectomy postoperative day #1. 1. Clear liquid diet. 2. Ambulate. 3. Incentive spirometry 10/h. 4. Heparin for DVT prophylaxis. Qualifiers: Laterality: right Qualified Code(s): C64.1 - Malignant neoplasm of right kidney, except renal pelvis Progress Note Narrative: [age] year-old man status post right nephroureterectomy. Postoperative day #1. He is doing well. Pain is adequately controlled. He denies any nausea. He says he is breathing well. He wishes to ambulate today. Objective Initial Vital Signs Temp Pulse Resp BP Pulse Ox 98.5 F 67 18 136/63 95 11/24/16 08:59 11/24/16 08:59 11/24/16 08:59 11/24/16 08:59 11/24/16 08:59 - General physical appearance Present: well developed, well nourished, no distress - Respiratory Present: normal respiratory effort - Abdomen Present: soft, surgical scars (c,d,i. No erythema) - Genitourinary Urine Appearance: Present: Clear (Catheter in place.) - Labs 11/25/16 05:39 11/25/16 05:39 Diabetes panel 11/25/16 Range/Units 05:39 Sodium 140 (136-145) mEq/L Potassium 4.8 H (3.5-4.5) mEq/L Chloride 108 (98-109) mEq/L Carbon Dioxide 28 (19-29) mEq/L BUN 30 H (8-26) mg/dL Creatinine 1.45 H (0.72-1.25) mg/dL Glucose 91 (70-99) mg/dL Calcium 8.1 L (8.6-10.8) mg/dL Calcium panel 11/25/16 Range/Units 05:39 Calcium 8.1 L (8.6-10.8) mg/dL Pituitary panel 11/25/16 Range/Units 05:39 Sodium 140 (136-145) mEq/L Potassium 4.8 H (3.5-4.5) mEq/L Chloride 108 (98-109) mEq/L Carbon Dioxide 28 (19-29) mEq/L BUN 30 H (8-26) mg/dL Creatinine 1.45 H (0.72-1.25) mg/dL Glucose 91 (70-99) mg/dL Calcium 8.1 L (8.6-10.8) mg/dL Adrenal panel 11/25/16 Range/Units 05:39 Sodium 140 (136-145) mEq/L Potassium 4.8 H (3.5-4.5) mEq/L Chloride 108 (98-109) mEq/L Carbon Dioxide 28 (19-29) mEq/L BUN 30 H (8-26) mg/dL Creatinine 1.45 H (0.72-1.25) mg/dL Glucose 91 (70-99) mg/dL Calcium 8.1 L (8.6-10.8) mg/dL - VTE Documentation of Mechanical Device: Intermittent pneumatic compression device Consult Discharge Plan - Plan Referrals: Eulalio Figueroa MD [Partnered Physician] -
[2016-11-25] MEDS: amLODIPine 5 MG TABLET PO SCH (07:59)
[2016-11-25] MEDS: Gabapentin 100 MG CAPSULE PO SCH ×3 (07:59→21:43)
[2016-11-25] MEDS: Metoprolol XL (24 HR) Succ 25 MG TAB.ER.24H PO SCH (08:00)
[2016-11-25] MEDS: Isosorbide MONOnitrate (24 HR) 30 MG TAB.ER.24H PO SCH (08:00)
[2016-11-25] MEDS: *HR* Heparin 5,000 UNIT/ML VIAL SQ SCH ×2 (08:21→17:02)
[2016-11-25] MEDS: (Umeclidinium Bromide [Incruse Ellipta] 1 PUFF) IH SCH (11:38)
[2016-11-25] MEDS ORDERED: Bisacodyl 10 MG RECTAL SUPPOSITORY RC PRN (17:34)
[2016-11-25] MEDS: Acetaminophen 325 MG TABLET PO PRN (21:43)
[2016-11-26] MEDS: Insulin LISPRO 300 UNITS/3 ML VIAL SQ SCH ×4 (00:10→16:21)
[2016-11-26] MEDS: *HR* HYDROmorphone (PF) 1 MG/ML SYRINGE IVP PRN ×4 (05:32→22:20)
[2016-11-26] MEDS: Acetaminophen 325 MG TABLET PO PRN (05:32)
[2016-11-26] MEDS: *HR* Heparin 5,000 UNIT/ML VIAL SQ SCH ×2 (05:32→16:21)
[2016-11-26 05:43] LABS: Basophils % 0.2 %; Eosinophils # 0.1 K/mcL (0.0-0.6); Hematocrit 29.6 % (37.5-50.1); Hemoglobin 9.1 g/dL (12.9-16.9); Immature Granulocytes % 0.4 % (0-4); Lymphocytes # 2.1 K/mcL (0.6-4.6); Lymphocytes % 20.3 %; Mean Corpuscular HGB Conc 30.7 g/dL (31.6-35.5); Mean Corpuscular Hemoglobin 27.9 pg (28.0-33.3); Mean Corpuscular Volume 90.8 fL (83.0-100.0); Mean Platelet Volume 10.5 fL (9.4-12.4); Monocytes # 1.3 K/mcL (0.0-1.3); Monocytes % 12.1 %; Neutrophils # 6.9 K/mcL (1.6-8.9); Platelet Count 164 K/mcL (140-400); Red Blood Count 3.26 M/mcL (4.19-5.50); Red Cell Distribution Width 14.8 % (11.5-14.5)
[2016-11-26 05:55] LABS: Calcium 7.7 mg/dL (8.6-10.8); Magnesium 1.5 mg/dL (1.6-2.6); Phosphorous 2.6 mg/dL (2.3-4.7)
[2016-11-26] MEDS ORDERED: Magnesium Sulfate 2 GM in D5% in Water 100 ML IVPB ONE (07:03)
--- NOTE | 2016-11-26 07:15 | Urology Progress Note ---
Date of Encounter: 11/26/16 Time of Encounter: 07:13 - Assessment and Plan (1) Urothelial carcinoma of kidney Current Visit: Yes Status: Acute Assessment and plan: Doing well. POD #2. 1. ADAT. 2. Ween off IV fluids. 3. Slight temp overnight. Will encourage incentive spirometry. 4. Ambulate 3x/day. 5. Dulcolax suppository today. 6. Continue catheter to allow for bladder healing. 7. Replace magnesium. 8. Heparin/SCDs for DVT prophylaxis. Qualifiers: Laterality: right Qualified Code(s): C64.1 - Malignant neoplasm of right kidney, except renal pelvis Progress Note Narrative: Doing well. Pain is controlled. Slight temperature overnight. Breathing well. Ambulating. Tolerating diet, no flatus yet. Objective Initial Vital Signs Temp Pulse Resp BP Pulse Ox 98.5 F 67 18 136/63 95 11/24/16 08:59 11/24/16 08:59 11/24/16 08:59 11/24/16 08:59 11/24/16 08:59 - General physical appearance Present: well developed, well nourished, no distress - Respiratory Present: normal respiratory effort - Abdomen Present: soft, surgical scars (c,d,i. Mild distension.) - Genitourinary Urine Appearance: Present: Clear - Labs 11/26/16 04:50 11/26/16 04:50 Diabetes panel 11/26/16 Range/Units 04:50 Sodium 138 (136-145) mEq/L Potassium 4.0 (3.5-4.5) mEq/L Chloride 110 H (98-109) mEq/L Carbon Dioxide 23 (19-29) mEq/L BUN 25 (8-26) mg/dL Creatinine 1.53 H (0.72-1.25) mg/dL Glucose 147 H (70-99) mg/dL Calcium 7.7 L (8.6-10.8) mg/dL Calcium panel 11/26/16 Range/Units 04:50 Calcium 7.7 L (8.6-10.8) mg/dL Phosphorus 2.6 (2.3-4.7) mg/dL Pituitary panel 11/26/16 Range/Units 04:50 Sodium 138 (136-145) mEq/L Potassium 4.0 (3.5-4.5) mEq/L Chloride 110 H (98-109) mEq/L Carbon Dioxide 23 (19-29) mEq/L BUN 25 (8-26) mg/dL Creatinine 1.53 H (0.72-1.25) mg/dL Glucose 147 H (70-99) mg/dL Calcium 7.7 L (8.6-10.8) mg/dL Adrenal panel 11/26/16 Range/Units 04:50 Sodium 138 (136-145) mEq/L Potassium 4.0 (3.5-4.5) mEq/L Chloride 110 H (98-109) mEq/L Carbon Dioxide 23 (19-29) mEq/L BUN 25 (8-26) mg/dL Creatinine 1.53 H (0.72-1.25) mg/dL Glucose 147 H (70-99) mg/dL Calcium 7.7 L (8.6-10.8) mg/dL - VTE Documentation of Mechanical Device: Intermittent pneumatic compression device Consult Discharge Plan - Plan Referrals: Eulalio Figueroa MD [Partnered Physician] -
[2016-11-26] MEDS: amLODIPine 5 MG TABLET PO SCH (08:47)
[2016-11-26] MEDS: Gabapentin 100 MG CAPSULE PO SCH ×3 (08:47→19:54)
[2016-11-26] MEDS: Isosorbide MONOnitrate (24 HR) 30 MG TAB.ER.24H PO SCH (08:48)
[2016-11-26] MEDS: 0.45 % Sodium Chloride w/KCl 20 MEQ/1,000 ML MLS IVC SCH ×2 (08:48→22:19)
[2016-11-26] MEDS: Metoprolol XL (24 HR) Succ 25 MG TAB.ER.24H PO SCH (08:48)
[2016-11-26] MEDS: (Umeclidinium Bromide [Incruse Ellipta] 1 PUFF) IH SCH (10:04)
[2016-11-27] MEDS: *HR* HYDROmorphone (PF) 1 MG/ML SYRINGE IVP PRN ×3 (01:27→06:27)
[2016-11-27] MEDS: Insulin LISPRO 300 UNITS/3 ML VIAL SQ SCH ×4 (06:16→18:04)
[2016-11-27] MEDS: *HR* Heparin 5,000 UNIT/ML VIAL SQ SCH ×2 (06:16→18:05)
--- NOTE | 2016-11-27 07:16 | Discharge Summary ---
Date of Encounter: 11/27/16 Time of Encounter: 07:14 - Discharge Diagnosis (1) Urothelial carcinoma of kidney Priority: Primary Status: Acute Qualifiers: Laterality: right Qualified Code(s): C64.1 - Malignant neoplasm of right kidney, except renal pelvis - Discharge Medications Prescriptions: Docusate [Colace] 100 mg PO BID #60 capsule Oxycodone HCl/Acetaminophen [Percocet 5-325 mg Tablet] 1 each PO Q4H PRN #25 tablet PRN Reason: Pain Home Medications: Albuterol Sulfate [Proair Hfa] 2 puff IH Q4H PRN 07/29/16 [History] Aspirin 81 mg PO DAILY 07/29/16 [History] Atorvastatin [Lipitor] 40 mg PO HS 07/29/16 [History] Celecoxib [Celebrex] 200 mg PO DAILY 07/29/16 [History] Cilostazol [Pletal] 100 mg PO BID 07/29/16 [History] GlipiZIDE [Glipizide ER] 10 mg PO BID 07/29/16 [History] Insulin DETEMIR [Levemir] 30 unit SQ HS 07/29/16 [History] Isosorbide MONOnitrate (24 HR) [Imdur] 30 mg PO DAILY 07/29/16 [History] Metoprolol XL (24 HR) Succ [Toprol Xl] 25 mg PO DAILY 07/29/16 [History] Pioglitazone [Actos] 30 mg PO DAILY 07/29/16 [History] Sertraline [Zoloft] 100 mg PO DAILY 07/29/16 [History] Umeclidinium [place] [Incruse Ellipta] 1 puff IH DAILY 07/29/16 [History] amLODIPine [Norvasc] 2.5 mg PO DAILY 07/29/16 [History] Gabapentin [Neurontin] 100 mg PO TID 09/08/16 [History] Betamethasone Nica 0.1% Crm [Valisone 0.1%] 1 appl TP ONCE 11/03/16 [History] Ketoconazole 2% CRM [Nizoral Cream] 1 appl TP BID 11/03/16 [History] Lisinopril [Zestril] 20 mg PO DAILY 11/03/16 [History] Oxycodone HCl/Acetaminophen [Percocet 5-325 mg Tablet] 1 each PO Q4H PRN #25 tablet 11/03/16 [Rx] Docusate [Colace] 100 mg PO BID #60 capsule 11/27/16 [Rx] Oxycodone HCl/Acetaminophen [Percocet 5-325 mg Tablet] 1 each PO Q4H PRN #25 tablet 11/27/16 [Rx] Allergies/Adverse Reactions: 3 Allergy/AdvReac Type Severity Reaction Status Date / Time Cefaclor [From Ceclor] AdvReac Chest Pain Verified 11/24/16 09:02 metformin AdvReac Diarrhea Verified 11/24/16 09:02 Date of admission: 11/24/16 16:49 Primary care physician: Marc Solorio CNP Consults: 11/25/16 07:18 Consult to Physical Therapy [CONS] Routine Comment: Evaluate, develop and implement POC Reason for Consult: Assist with ambulation. Discharging clinician: Eulalio Figueroa Anticipated date of discharge: 11/27/16 - Patient Status Disposition: Home, Self-Care Condition: Good Functional capacity at discharge: independent ambulation Overall status at discharge: patient is progressing back to baseline - Discharge Instructions Follow Up With: Eulalio Figueroa MD [Partnered Physician] - (1 week for catheter removal.) Additional Instructions: 1. No heavy lifting greater than 20 pounds x2 weeks. 2. No tub baths x2 weeks. 3. May shower. 4. He should follow up in 1 week for postoperative check and voiding trial. 5. He should return for any fevers, chills, nausea, vomiting, or significant swelling/ecchymosis. Please provide catheter care instructions - leg bag, night bag, leg strap and how to change the bags appropriately. - Diet and Activity Activity: increase activity as tolerated Diet: advance to your usual diet - Hospital Course Hospital course: Mr. Quiroz is a 71 year old male with a history of upper tract urothelial cancer. On November 24, 2016 he underwent a right hand-assisted laparoscopic nephroureterectomy. He did well. His pain was well-controlled. As his bowel function improved and his diet was slowly advanced. He was able to ambulate. He was tolerating oral pain medication. On postoperative day #3 he was discharged home. He was given Moore catheter teaching to allow the bladder to heal after removal of the ureter. - Time Spent with Patient Total time spent providing and/or coordinating discharge services: Less than 30 minutes Exam Initial Vital Signs Temp Pulse Resp BP Pulse Ox 98.5 F 67 18 136/63 95 11/24/16 08:59 11/24/16 08:59 11/24/16 08:59 11/24/16 08:59 11/24/16 08:59 - General physical appearance Present: well developed, well nourished, no distress - Eyes Absent: icteric - ENT Present: normal nares - Neck Present: trachea midline - Respiratory Present: normal respiratory effort - Cardiovascular Cardiovascular exam IM: RRR - Abdomen Abdomen: Present: soft (incisions are c,d,i.) - VTE Documentation of Mechanical Device: Intermittent pneumatic compression device
--- NOTE | 2016-11-27 08:44 | Physician Discharge Referral ---
Home Health/Hosp Referral Info Transfer to: Home Health Provider in Charge Post Discharge: PCP - Diagnosis (1) Urothelial carcinoma of kidney Priority: Primary Status: Acute - Respiratory Orders Smoking Cessation: Smoking cessation has been advised. For more information, call the [place] Tobacco Quit Line at 0-207-ERFU-NOW. - Diet/Nutrition Diet/Nutrition Orders: Regular - Activity Activity Orders: Up ad nicole - Services Needed Following services are medically necessary services: Physical Therapy, Occupational Therapy - Transfer Medications Prescriptions: Docusate [Colace] 100 mg PO BID #60 capsule Oxycodone HCl/Acetaminophen [Percocet 5-325 mg Tablet] 1 each PO Q4H PRN #25 tablet PRN Reason: Pain Home Medications: Albuterol Sulfate [Proair Hfa] 2 puff IH Q4H PRN 07/29/16 [History] Aspirin 81 mg PO DAILY 07/29/16 [History] Atorvastatin [Lipitor] 40 mg PO HS 07/29/16 [History] Celecoxib [Celebrex] 200 mg PO DAILY 07/29/16 [History] Cilostazol [Pletal] 100 mg PO BID 07/29/16 [History] GlipiZIDE [Glipizide ER] 10 mg PO BID 07/29/16 [History] Insulin DETEMIR [Levemir] 30 unit SQ HS 07/29/16 [History] Isosorbide MONOnitrate (24 HR) [Imdur] 30 mg PO DAILY 07/29/16 [History] Metoprolol XL (24 HR) Succ [Toprol Xl] 25 mg PO DAILY 07/29/16 [History] Pioglitazone [Actos] 30 mg PO DAILY 07/29/16 [History] Sertraline [Zoloft] 100 mg PO DAILY 07/29/16 [History] Umeclidinium [place] [Incruse Ellipta] 1 puff IH DAILY 07/29/16 [History] amLODIPine [Norvasc] 2.5 mg PO DAILY 07/29/16 [History] Gabapentin [Neurontin] 100 mg PO TID 09/08/16 [History] Betamethasone Nica 0.1% Crm [Valisone 0.1%] 1 appl TP ONCE 11/03/16 [History] Ketoconazole 2% CRM [Nizoral Cream] 1 appl TP BID 11/03/16 [History] Lisinopril [Zestril] 20 mg PO DAILY 11/03/16 [History] Oxycodone HCl/Acetaminophen [Percocet 5-325 mg Tablet] 1 each PO Q4H PRN #25 tablet 11/03/16 [Rx] Docusate [Colace] 100 mg PO BID #60 capsule 11/27/16 [Rx] Oxycodone HCl/Acetaminophen [Percocet 5-325 mg Tablet] 1 each PO Q4H PRN #25 tablet 11/27/16 [Rx] Allergies/Adverse Reactions: 3 Allergy/AdvReac Type Severity Reaction Status Date / Time Cefaclor [From Ceclor] AdvReac Chest Pain Verified 11/24/16 09:02 metformin AdvReac Diarrhea Verified 11/24/16 09:02 Certification: Further, I certify that my clinical findings support that this patient is homebound (i.e. absences from home require considerable and taxing effort and are for medical reasons or jehovah's witness services or infrequently or short duration when for other reasons) because: Homebound Reason: Post-surgery restriction and or conditions limit ability to leave home Attestation: My signature below is to certify that this patient is under my care and that I, or nurse practitioner, or a physician's back office medical assistant working with me, has a face-to -face encounter with this patient.
[2016-11-27] MEDS: *HR* GlipiZIDE XL (24 HR) 10 MG TABLET PO SCH ×2 (09:09→20:33)
[2016-11-27] MEDS: Metoprolol XL (24 HR) Succ 25 MG TAB.ER.24H PO SCH (09:09)
[2016-11-27] MEDS: amLODIPine 5 MG TABLET PO SCH (09:09)
[2016-11-27] MEDS: *HR* Pioglitazone 30 MG TABLET PO SCH (09:09)
[2016-11-27] MEDS: Gabapentin 100 MG CAPSULE PO SCH ×3 (09:10→20:30)
[2016-11-27] MEDS: Isosorbide MONOnitrate (24 HR) 30 MG TAB.ER.24H PO SCH (09:10)
[2016-11-27] MEDS: (Umeclidinium Bromide [Incruse Ellipta] 1 PUFF) IH SCH (09:11)
[2016-11-27] MEDS: *HR* OxyCODONE Immed Rel 5 MG TABLET PO PRN ×3 (09:13→20:33)
--- NOTE | 2016-11-27 15:24 | Urology Progress Note ---
Date of Encounter: 11/27/16 Time of Encounter: 15:21 - Assessment and Plan (1) Urothelial carcinoma of kidney Current Visit: Yes Status: Acute Assessment and plan: POD #3 s/p Right HALNU. 1. Await improvement in oral pain control. Qualifiers: Laterality: right Qualified Code(s): C64.1 - Malignant neoplasm of right kidney, except renal pelvis Progress Note Narrative: POD #3 s/p right HALNU. Doing well. He was initially ready for discharge, but his stomach pain worsened. So, we cancelled his discharge today. Objective Initial Vital Signs Temp Pulse Resp BP Pulse Ox 98.5 F 67 18 136/63 95 11/24/16 08:59 11/24/16 08:59 11/24/16 08:59 11/24/16 08:59 11/24/16 08:59 - General physical appearance Present: well developed, well nourished, no distress - Respiratory Present: normal respiratory effort - Abdomen Present: soft - Labs 11/26/16 04:50 11/26/16 04:50 - VTE Documentation of Mechanical Device: Intermittent pneumatic compression device Consult Discharge Plan - Plan Additional Instructions: 1. No heavy lifting greater than 20 pounds x2 weeks. 2. No tub baths x2 weeks. 3. May shower. 4. He should follow up in 1 week for postoperative check and voiding trial. 5. He should return for any fevers, chills, nausea, vomiting, or significant swelling/ecchymosis. Please provide catheter care instructions - leg bag, night bag, leg strap and how to change the bags appropriately. Referrals: Eulalio Figueroa MD [Partnered Physician] - 12/04/16 9:00 am (1 week for catheter removal.) Prescriptions: Docusate [Colace] 100 mg PO BID #60 capsule Oxycodone HCl/Acetaminophen [Percocet 5-325 mg Tablet] 1 each PO Q4H PRN #25 tablet PRN Reason: Pain
[2016-11-28] MEDS: Insulin LISPRO 300 UNITS/3 ML VIAL SQ SCH ×2 (05:25→05:46)
[2016-11-28] MEDS: *HR* Heparin 5,000 UNIT/ML VIAL SQ SCH (05:45)
[2016-11-28 07:15] VITALS: BP 145/64
--- NOTE | 2016-11-28 07:23 | Urology Progress Note ---
Date of Encounter: 11/28/16 Time of Encounter: 07:22 - Assessment and Plan (1) Urothelial carcinoma of kidney Current Visit: Yes Status: Acute Assessment and plan: POD #4 s/p right HALNU. Doing well. 1. Anticipate d/c home today. Qualifiers: Laterality: right Qualified Code(s): C64.1 - Malignant neoplasm of right kidney, except renal pelvis Progress Note Narrative: POD #4 s/p right HALNU. Doing well today. Tolerating diet. Passing gas. Pain controll improved. Objective Initial Vital Signs Temp Pulse Resp BP Pulse Ox 98.5 F 67 18 136/63 95 11/24/16 08:59 11/24/16 08:59 11/24/16 08:59 11/24/16 08:59 11/24/16 08:59 - General physical appearance Present: well developed, well nourished, no distress - Respiratory Present: normal respiratory effort - Abdomen Present: soft, surgical scars (c,d,i. Distension improved.) - Labs 11/26/16 04:50 11/26/16 04:50 - VTE Documentation of Mechanical Device: Intermittent pneumatic compression device Consult Discharge Plan - Plan Additional Instructions: 1. No heavy lifting greater than 20 pounds x2 weeks. 2. No tub baths x2 weeks. 3. May shower. 4. He should follow up in 1 week for postoperative check and voiding trial. 5. He should return for any fevers, chills, nausea, vomiting, or significant swelling/ecchymosis. Please provide catheter care instructions - leg bag, night bag, leg strap and how to change the bags appropriately. Referrals: Eulalio Figueroa MD [Partnered Physician] - 12/04/16 9:00 am (1 week for catheter removal.) Prescriptions: Docusate [Colace] 100 mg PO BID #60 capsule Oxycodone HCl/Acetaminophen [Percocet 5-325 mg Tablet] 1 each PO Q4H PRN #25 tablet PRN Reason: Pain
[2016-11-28] MEDS: Metoprolol XL (24 HR) Succ 25 MG TAB.ER.24H PO SCH (07:59)
[2016-11-28] MEDS: Gabapentin 100 MG CAPSULE PO SCH (07:59)
[2016-11-28] MEDS: Isosorbide MONOnitrate (24 HR) 30 MG TAB.ER.24H PO SCH (07:59)
[2016-11-28] MEDS: amLODIPine 5 MG TABLET PO SCH (07:59)
[2016-11-28] MEDS: *HR* OxyCODONE Immed Rel 5 MG TABLET PO PRN (08:00)
[2016-11-28] MEDS: *HR* Pioglitazone 30 MG TABLET PO SCH (08:01)
[2016-11-28] MEDS: *HR* GlipiZIDE XL (24 HR) 10 MG TABLET PO SCH (08:01)
[2016-11-28] MEDS: (Umeclidinium Bromide [Incruse Ellipta] 1 PUFF) IH SCH (08:02)
== END 2016-11-28 09:32 | disposition home or self-care (01) | DRG 658 ==
LOC: SAMDAY 08:40 → 3ANU 16:49
PROVIDERS: ADMIT Urology; ATTEND Urology

== ENCOUNTER 2017-01-08 11:59 | Inpatient (IN) ==
[~2017-01-08 11:59] MED LIST: *HR* Propofol 200 MG/20 ML VIAL IVP ONE; *HR* Succinylcholine 200 MG/10 ML VIAL IVP ONE; Lidocaine -MPF 2% 5 ML VIAL INFILT ONE; Lidocaine -MPF 4% 5 ML AMPUL INFILT ONE; Ondansetron 4 MG/2 ML VIAL IVP ONE
[2017-01-08] MEDS ORDERED: *HR* HYDROmorphone 2 MG/ML SYRINGE IVP ONE (12:42)
[2017-01-08] MEDS ORDERED: 0.9 % Sodium Chloride 1,000 ML IVC ONE (12:42)
[2017-01-08] MEDS ORDERED: Ondansetron ODT 4 MG TAB.RAPDIS SL ONE (12:50)
--- NOTE | 2017-01-08 12:50 | Emergency Department Note ---
START Narrative - START START: I examined this patient and my medical decision-making was reviewed with the [employer] TEAM MEMBER/PA/Advanced Practice Nurse/Resident Physician. I agree with the documented findings, disposition and treatment plan as described except to the extent set forth below. Patient does have a history of nephrectomy as well as cholecystectomy and yesterday had several stents removed from what sounds like the common bile duct and then last night at 7:00 has severe right upper quadrant abdominal pain. On my exam does have significant right upper quadrant pain with some guarding. The area is normal in appearance. No overlying erythema or any right upper quadrant cuts or breaks in skin. The right lower quadrant wound from the nephrectomy and ureterectomy removal is clean and dry and intact. Labs are pending. The patient received pain medicine. CT scan. 1250
--- NOTE | 2017-01-08 13:07 | Emergency Department Note ---
Disposition Clinical Impression: RUQ abdominal pain Disposition: Admitted As Inpatient Condition: Fair Time of Disposition: 15:29 Abdominal Pain HPI - General Chief Complaint: ED Abdominal Pain Stated Complaint: abd pain Time Seen by Provider: 01/08/17 12:21 Source: patient Mode of arrival: ambulatory Limitations: no limitations Nursing Notes Reviewed: Yes Vital Signs Reviewed: Yes - History of Present Illness HPI Narrative: 71-year-old male presents with approximately one-day history of severe right upper quadrant abdominal pain. Pain began last night with no known provocation , states it is a 6-9 out of 10, and radiates into his back on the right side. Pain is described as constant and intermittently sharp. Patient has tried Tylenol with no relief. There are no known provoking factors. Patient denies any fevers, chills, sweats, syncope, headache, confusion, chest pain, shortness of air, nausea, vomiting. Patient has had some diarrhea this morning. No hematochezia or melena. No dysuria, frequency, or gross hematuria. Significant surgical history includes cholecystectomy in August of 2016; biliary stent placed which was removed yesterday by Dr. Avila prior to onset of acute pain. Pain Scale: 9 - Related Data Home Medications Medication Instructions Recorded Confirmed GlipiZIDE [Glipizide ER] 10 mg PO DAILY 07/29/16 01/08/17 Insulin DETEMIR [Levemir] 25 unit SQ HS 07/29/16 01/08/17 Isosorbide MONOnitrate (24 HR) 30 mg PO DAILY 07/29/16 01/08/17 [Imdur] Metoprolol XL (24 HR) Succ [Toprol 25 mg PO HS 07/29/16 01/08/17 Xl] Pioglitazone [Actos] 30 mg PO DAILY 07/29/16 01/08/17 Sertraline [Zoloft] 100 mg PO DAILY 07/29/16 01/08/17 amLODIPine [Norvasc] 2.5 mg PO DAILY 07/29/16 01/08/17 Gabapentin [Neurontin] 100 mg PO QAM 09/08/16 01/08/17 Lisinopril [Zestril] 20 mg PO DAILY 11/03/16 01/08/17 Aspirin Enteric Coated [Aspirin EC] 81 mg PO DAILY 01/08/17 01/08/17 Atorvastatin [Lipitor] 40 mg PO HS 01/08/17 01/08/17 Celecoxib [Celebrex] 200 mg PO DAILY 01/08/17 01/08/17 Cilostazol [Pletal] 100 mg PO BID 01/08/17 01/08/17 Gabapentin [Neurontin] 200 mg PO HS 01/08/17 01/08/17 [place]-3/Dha/Epa/Fish Oil [Fish Oil 1,000 mg PO DAILY 01/08/17 01/08/17 1,000 mg Softgel] Previous Rx's Medication Instructions Recorded HYDROcodone/Acet 5/325 mg [[place] 1 - 2 tab PO Q6H PRN #30 tab 01/08/17 5-325 mg] Allergies Allergy/AdvReac Type Severity Reaction Status Date / Time Cefaclor [From Ceclor] AdvReac Chest Pain Verified 01/08/17 12:11 metformin AdvReac Diarrhea Verified 01/08/17 12:11 Review of Systems: As Per HPI Constitutional: Denies: fever, chills, weakness, night sweats Cardiovascular: Denies: chest pain, palpitations, dyspnea on exertion Respiratory: Denies: cough Gastrointestinal: Reports: abdominal pain, diarrhea. Denies: nausea, vomiting, constipation, melena, hematochezia Genitourinary: Denies: urgency, dysuria, frequency, hematuria Musculoskeletal: Reports: back pain. Denies: neck pain Neurological: Denies: headache, weakness, numbness, confusion Endocrine: Denies: fatigue Abdominal Pain PMH - Past Medical History Medical history: Reports: arthritis, COPD, coronary artery disease, diabetes, hyperlipidemia, hypertension, myocardial infarction Male Surgical History: Reports: angioplasty/stent, cholecystectomy, Tonsillectomy, other Psychiatric history: Reports: anxiety, depression - Social History Smoking status: Never smoker Alcohol use: Reports: none Drug use: Reports: none Physical Exam Abdominal exam: normal inspection tended to palpation to right upper quadrant. Guarding in right upper quadrant. Some rebound tenderness. Otherwise, abdomen is soft and nontender in all other quadrants. - General Limitations: no limitations General appearance: alert, in no apparent distress - Head Head exam: atraumatic, normocephalic - Eye Eye exam: Present: PERRL, EOMI. Absent: scleral icterus, conjunctival injection - ENT ENT exam: mucous membranes moist - Respiratory Respiratory exam: Present: normal lung sounds bilaterally. Absent: respiratory distress, wheezes, accessory muscle use - Cardiovascular Cardiovascular exam: Present: regular rate, normal rhythm. Absent: systolic murmur, diastolic murmur, +S3, +S4 - Extremities Exam Extremities exam: Absent: pedal edema - Neurological Exam Neurological exam: Present: alert, oriented X3 - Skin Skin exam: Present: warm, dry. Absent: cyanosis, diaphoresis, erythema, pallor Course Course Narrative: Given surgical history and current presentation, will need for further evaluate and consider possibility of admission for surgical/G.I. consult. Will get IV fluids going, IV Dilaudid for pain, check labs, and get a CT of abdomen and pelvis to assess for any acute inflammatory process. - Reevaluation(s) Reevaluation #1: IV Dilaudid initially delayed due to difficult IV access. I gained successful right AC access with a 20g catheter. Dilaudid given. Work up still pending. Time: 13:56 Reevaluation #2: re-evaluated patient; pain is 3/10 (vs prior 7/10) after 0.5mg Dilaudid IV Reviewed labs and CT; patient does have significant leukocytosis, but CT was not remarkable for acute biliary tract abnormalities. Pain has been severe and difficult to control on outpatient basis. Discussed with patient that he would benefit from inpatient pain control and further evaluation by gastroenterology. Patient is agreeable. Time: 15:15 - Consultations Consultation #1: spoke with Dr. Avila, die machine operator. Agrees to consult on patient for further evaluation of ductal system on IP basis. Time: 15:05 Consultation #2: Discussed case with Dr. Scales, hospitalist. Agrees to admit patient for intractable RUQ pain and GI consult for further biliary evaluation. Time: 15:15 Vital Signs Temperature 98.9 F 01/08/17 12:12 Pulse Rate 70 01/08/17 12:12 Respiratory Rate 22 01/08/17 12:12 Blood Pressure 148/63 01/08/17 12:12 O2 Sat by Pulse Oximetry 95 01/08/17 12:12 Temperature 99.1 F 01/08/17 20:27 Pulse Rate 83 01/08/17 20:27 Respiratory Rate 14 01/08/17 20:27 Blood Pressure 125/56 01/08/17 20:27 O2 Sat by Pulse Oximetry 95 01/08/17 20:27 Oxygen Delivery Oxygen Delivery Room Air Abdominal Pain - MDM Narrative Medical decision making narrative: Patient is currently comfortable and has stable vital signs. Due to intractable pain will admit patient to hospital service and will get consult for G.I. for further assessment of biliary system for possible recurrent/ persistent obstruction. Will admit to Dr. Scales (hospitalist) with GI consult ( Dr. Avila). - Lab Data Lab results reviewed: Yes I reviewed the patient's lab results. Lab results narrative: Laboratory Last Values WBC 15.4 K/mcL (4.3-11.1) H 01/08/17 13:24 RBC 4.09 M/mcL (4.19-5.50) L 01/08/17 13:24 Hgb 11.0 g/dL (12.9-16.9) L 01/08/17 13:24 Hct 35.2 % (37.5-50.1) L 01/08/17 13:24 MCV 86.1 fL (83.0-100.0) 01/08/17 13:24 MCH 26.9 pg (28.0-33.3) L 01/08/17 13:24 MCHC 31.3 g/dL (31.6-35.5) L 01/08/17 13:24 RDW 15.2 % (11.5-14.5) H 01/08/17 13:24 Plt Count 203 K/mcL (140-400) 01/08/17 13:24 MPV 9.1 fL (9.4-12.4) L 01/08/17 13:24 Immature Gran % 0.4 % (0-4) 01/08/17 13:24 Seg Neutrophils % 77.7 % 01/08/17 13:24 Lymphocytes % 11.3 % 01/08/17 13:24 Monocytes % 9.9 % 01/08/17 13:24 Eosinophils % 0.4 % 01/08/17 13:24 Basophils % 0.3 % 01/08/17 13:24 Neutrophils # 12.0 K/mcL (1.6-8.9) H 01/08/17 13:24 Lymphocytes # 1.7 K/mcL (0.6-4.6) 01/08/17 13:24 Monocytes # 1.5 K/mcL (0.0-1.3) H 01/08/17 13:24 Eosinophils # 0.1 K/mcL (0.0-0.6) 01/08/17 13:24 Basophils # 0.0 K/mcL (0.0-0.2) 01/08/17 13:24 Sodium 141 mEq/L (136-145) 01/08/17 13:24 Potassium 4.4 mEq/L (3.5-4.5) 01/08/17 13:24 Chloride 110 mEq/L (98-109) H 01/08/17 13:24 Carbon Dioxide 24 mEq/L (19-29) 01/08/17 13:24 BUN 35 mg/dL (8-26) H 01/08/17 13:24 Creatinine 1.59 mg/dL (0.72-1.25) H 01/08/17 13:24 Est GFR ( Amer) 52 (> 60) L 01/08/17 13:24 Est GFR (Non-Af Amer) 43 (> 60) L 01/08/17 13:24 BUN/Creatinine Ratio 22 (6-26) 01/08/17 13:24 Glucose 121 mg/dL (70-99) H 01/08/17 13:24 Calculated Osmolality 301 (280-300) H 01/08/17 13:24 Lactic Acid 1.0 mmol/L (0.5-2.2) 01/08/17 13:24 Calcium 8.9 mg/dL (8.6-10.8) 01/08/17 13:24 Total Bilirubin 0.3 mg/dL (0.2-1.2) 01/08/17 13:24 Direct Bilirubin 0.2 mg/dL (0.0-0.5) 01/08/17 13:24 Indirect Bilirubin 0.1 mg/dL (0.0-1.2) 01/08/17 13:24 AST 20 Units/L (5-34) 01/08/17 13:24 ALT 20 Units/L (0-55) 01/08/17 13:24 Alkaline Phosphatase 63 Units/L (38-126) 01/08/17 13:24 Serum Total Protein 7.3 g/dL (6.0-8.3) 01/08/17 13:24 Albumin 3.4 g/dL (3.5-5.0) L 01/08/17 13:24 Globulin 3.9 g/dL (2.4-3.5) H 01/08/17 13:24 Albumin/Globulin Ratio 0.9 (1.1-2.2) L 01/08/17 13:24 Lipase 99 Units/L (8-78) H 01/08/17 13:24 Laboratory Last Values WBC 15.4 K/mcL (4.3-11.1) H 01/08/17 13:24 RBC 4.09 M/mcL (4.19-5.50) L 01/08/17 13:24 Hgb 11.0 g/dL (12.9-16.9) L 01/08/17 13:24 Hct 35.2 % (37.5-50.1) L 01/08/17 13:24 MCV 86.1 fL (83.0-100.0) 01/08/17 13:24 MCH 26.9 pg (28.0-33.3) L 01/08/17 13:24 MCHC 31.3 g/dL (31.6-35.5) L 01/08/17 13:24 RDW 15.2 % (11.5-14.5) H 01/08/17 13:24 Plt Count 203 K/mcL (140-400) 01/08/17 13:24 MPV 9.1 fL (9.4-12.4) L 01/08/17 13:24 Immature Gran % 0.4 % (0-4) 01/08/17 13:24 Seg Neutrophils % 77.7 % 01/08/17 13:24 Lymphocytes % 11.3 % 01/08/17 13:24 Monocytes % 9.9 % 01/08/17 13:24 Eosinophils % 0.4 % 01/08/17 13:24 Basophils % 0.3 % 01/08/17 13:24 Neutrophils # 12.0 K/mcL (1.6-8.9) H 01/08/17 13:24 Lymphocytes # 1.7 K/mcL (0.6-4.6) 01/08/17 13:24 Monocytes # 1.5 K/mcL (0.0-1.3) H 01/08/17 13:24 Eosinophils # 0.1 K/mcL (0.0-0.6) 01/08/17 13:24 Basophils # 0.0 K/mcL (0.0-0.2) 01/08/17 13:24 Sodium 141 mEq/L (136-145) 01/08/17 13:24 Potassium 4.4 mEq/L (3.5-4.5) 01/08/17 13:24 Chloride 110 mEq/L (98-109) H 01/08/17 13:24 Carbon Dioxide 24 mEq/L (19-29) 01/08/17 13:24 BUN 35 mg/dL (8-26) H 01/08/17 13:24 Creatinine 1.59 mg/dL (0.72-1.25) H 01/08/17 13:24 Est GFR ( Amer) 52 (> 60) L 01/08/17 13:24 Est GFR (Non-Af Amer) 43 (> 60) L 01/08/17 13:24 BUN/Creatinine Ratio 22 (6-26) 01/08/17 13:24 Glucose 121 mg/dL (70-99) H 01/08/17 13:24 Calculated Osmolality 301 (280-300) H 01/08/17 13:24 Lactic Acid 1.0 mmol/L (0.5-2.2) 01/08/17 13:24 Calcium 8.9 mg/dL (8.6-10.8) 01/08/17 13:24 Total Bilirubin 0.3 mg/dL (0.2-1.2) 01/08/17 13:24 Direct Bilirubin 0.2 mg/dL (0.0-0.5) 01/08/17 13:24 Indirect Bilirubin 0.1 mg/dL (0.0-1.2) 01/08/17 13:24 AST 20 Units/L (5-34) 01/08/17 13:24 ALT 20 Units/L (0-55) 01/08/17 13:24 Alkaline Phosphatase 63 Units/L (38-126) 01/08/17 13:24 Serum Total Protein 7.3 g/dL (6.0-8.3) 01/08/17 13:24 Albumin 3.4 g/dL (3.5-5.0) L 01/08/17 13:24 Globulin 3.9 g/dL (2.4-3.5) H 01/08/17 13:24 Albumin/Globulin Ratio 0.9 (1.1-2.2) L 01/08/17 13:24 Lipase 99 Units/L (8-78) H 01/08/17 13:24 Result diagrams: 01/08/17 13:24 01/08/17 13:24 Lab Results 01/08/17 01/08/17 01/08/17 Range/Units 13:24 13:24 13:24 WBC 15.4 H (4.3-11.1) K/mcL RBC 4.09 L (4.19-5.50) M/mcL Hgb 11.0 L (12.9-16.9) g/dL Hct 35.2 L (37.5-50.1) % MCV 86.1 (83.0-100.0) fL MCH 26.9 L (28.0-33.3) pg MCHC 31.3 L (31.6-35.5) g/dL RDW 15.2 H (11.5-14.5) % Plt Count 203 (140-400) K/mcL MPV 9.1 L (9.4-12.4) fL Immature Gran % 0.4 (0-4) % Seg Neutrophils % 77.7 % Lymphocytes % 11.3 % Monocytes % 9.9 % Eosinophils % 0.4 % Basophils % 0.3 % Neutrophils # 12.0 H (1.6-8.9) K/mcL Lymphocytes # 1.7 (0.6-4.6) K/mcL Monocytes # 1.5 H (0.0-1.3) K/mcL Eosinophils # 0.1 (0.0-0.6) K/mcL Basophils # 0.0 (0.0-0.2) K/mcL Sodium 141 (136-145) mEq/L Potassium 4.4 (3.5-4.5) mEq/L Chloride 110 H (98-109) mEq/L Carbon Dioxide 24 (19-29) mEq/L BUN 35 H (8-26) mg/dL Creatinine 1.59 H (0.72-1.25) mg/dL Est GFR ( Amer) 52 L (> 60) Est GFR (Non-Af Amer) 43 L (> 60) BUN/Creatinine Ratio 22 (6-26) Glucose 121 H (70-99) mg/dL POC Glucose (58-89) Calculated Osmolality 301 H (280-300) Lactic Acid (0.5-2.2) mmol/L Calcium 8.9 (8.6-10.8) mg/dL Total Bilirubin 0.3 (0.2-1.2) mg/dL Direct Bilirubin 0.2 (0.0-0.5) mg/dL Indirect Bilirubin 0.1 (0.0-1.2) mg/dL AST 20 (5-34) Units/L ALT 20 (0-55) Units/L Alkaline Phosphatase 63 (38-126) Units/L Serum Total Protein 7.3 (6.0-8.3) g/dL Albumin 3.4 L (3.5-5.0) g/dL Globulin 3.9 H (2.4-3.5) g/dL Albumin/Globulin Ratio 0.9 L (1.1-2.2) Lipase 99 H (8-78) Units/L 01/08/17 01/08/17 Range/Units 13:24 16:52 WBC (4.3-11.1) K/mcL RBC (4.19-5.50) M/mcL Hgb (12.9-16.9) g/dL Hct (37.5-50.1) % MCV (83.0-100.0) fL MCH (28.0-33.3) pg MCHC (31.6-35.5) g/dL RDW (11.5-14.5) % Plt Count (140-400) K/mcL MPV (9.4-12.4) fL Immature Gran % (0-4) % Seg Neutrophils % % Lymphocytes % % Monocytes % % Eosinophils % % Basophils % % Neutrophils # (1.6-8.9) K/mcL Lymphocytes # (0.6-4.6) K/mcL Monocytes # (0.0-1.3) K/mcL Eosinophils # (0.0-0.6) K/mcL Basophils # (0.0-0.2) K/mcL Sodium (136-145) mEq/L Potassium (3.5-4.5) mEq/L Chloride (98-109) mEq/L Carbon Dioxide (19-29) mEq/L BUN (8-26) mg/dL Creatinine (0.72-1.25) mg/dL Est GFR ( Amer) (> 60) Est GFR (Non-Af Amer) (> 60) BUN/Creatinine Ratio (6-26) Glucose (70-99) mg/dL POC Glucose 145 H (58-89) Calculated Osmolality (280-300) Lactic Acid 1.0 (0.5-2.2) mmol/L Calcium (8.6-10.8) mg/dL Total Bilirubin (0.2-1.2) mg/dL Direct Bilirubin (0.0-0.5) mg/dL Indirect Bilirubin (0.0-1.2) mg/dL AST (5-34) Units/L ALT (0-55) Units/L Alkaline Phosphatase (38-126) Units/L Serum Total Protein (6.0-8.3) g/dL Albumin (3.5-5.0) g/dL Globulin (2.4-3.5) g/dL Albumin/Globulin Ratio (1.1-2.2) Lipase (8-78) Units/L - Radiology Data Radiology results reviewed: Yes I reviewed the patient's radiology results. Abdomen/Pelvis CT 01/08/17 12:38 IMPRESSION: 1. No acute abdominopelvic abnormality. 2. Changes of interval cholecystectomy with 5 mm radiopaque calculus in the residual cystic duct stump. No evidence of biliary ductal obstruction. 3. Prior right nephrectomy. 4. Sigmoid diverticulosis. 5. Stable benign left adrenal adenoma. D/ / Hiro Bain MD / Hiro Bain MD Interpreting Provider: Hiro Bain MD
[2017-01-08 13:33] LABS: Basophils % 0.3 %; Eosinophils # 0.1 K/mcL (0.0-0.6); Eosinophils % 0.4 %; Hematocrit 35.2 % (37.5-50.1); Immature Granulocytes % 0.4 % (0-4); Lymphocytes # 1.7 K/mcL (0.6-4.6); Lymphocytes % 11.3 %; Mean Corpuscular HGB Conc 31.3 g/dL (31.6-35.5); Mean Corpuscular Hemoglobin 26.9 pg (28.0-33.3); Mean Corpuscular Volume 86.1 fL (83.0-100.0); Mean Platelet Volume 9.1 fL (9.4-12.4); Monocytes # 1.5 K/mcL (0.0-1.3); Monocytes % 9.9 %; Platelet Count 203 K/mcL (140-400); Red Blood Count 4.09 M/mcL (4.19-5.50); Red Cell Distribution Width 15.2 % (11.5-14.5); Segmented Neutrophils % 77.7 %
[2017-01-08 13:46] LABS: Albumin 3.4 g/dL (3.5-5.0); Albumin/Globulin Ratio 0.9 (1.1-2.2); Bilirubin,Direct 0.2 mg/dL (0.0-0.5); Bilirubin,Indirect 0.1 mg/dL (0.0-1.2); Bilirubin,Total 0.3 mg/dL (0.2-1.2); Calcium 8.9 mg/dL (8.6-10.8); Globulin 3.9 g/dL (2.4-3.5); Potassium 4.4 mEq/L (3.5-4.5); Total Protein 7.3 g/dL (6.0-8.3)
[2017-01-08] MEDS ORDERED: Acetaminophen 325 MG TABLET PO PRN (20:19)
[2017-01-08] MEDS ORDERED: *HR* Dextrose 50 % in Water (Syg) 50 ML SYRINGE IVP PRN (20:19)
[2017-01-08] MEDS ORDERED: Naloxone 0.4 MG/ML INJ IVP PRN (20:19)
[2017-01-08] MEDS ORDERED: Dextrose Gel 15 GM PO PRN ×2 (20:19)
[2017-01-08] MEDS ORDERED: D5% in Water 1,000 ML IVC PRN (20:19)
[2017-01-08] MEDS ORDERED: *HR* Promethazine 25 MG/ML VIAL IVP PRN (20:25)
--- NOTE | 2017-01-08 20:42 | Internal Med History&Physical ---
Date of Encounter: 01/08/17 Time of Encounter: 19:40 Assessment and Plan (1) RUQ abdominal pain Current visit: Yes Status: Acute 1. Pain started after ERCP stent removal. 2. Labs suggest mild pancreatitis. 3. Will treat with IV pain medication, nausea medications, IVF. 4. Will allow clear liquid diet with instructions to stop PO feeds if it aggravates his abdominal pain. 5. Given elevated WBC, will order blood and urine cultures. 6. Will start IV antibiotics to cover GI/ virgilio. 7. Follow clinically and deescalate antibiotics as clinical picture dictates. 8. Consult Dr. Avila. 9. Will trend LFT's and pancreatic enzymes. (2) CAD (coronary artery disease) Current visit: Yes Status: Chronic 1. Continue home meds as appropriate. 2. No current symptoms to suggest angina. 3. Will place on telemetry and order baseline EKG. Qualifiers: Coronary Disease-Associated Artery/Lesion type: [place] artery [place] vs. transplanted heart: [place] heart Associated angina: without angina Qualified Code(s): I25.10 - Atherosclerotic heart disease of [place] coronary artery without angina pectoris (3) CKD (chronic kidney disease) Current visit: No Status: Chronic 1. S/P nephrectomy due to kidney cancer. 2. Monitor renal function. 3. Outpatient follow up with nephrology. Consult them if necessary while in hospital. Qualifiers: Chronic kidney disease stage: stage 2 (mild) Qualified Code(s): N18.2 - Chronic kidney disease, stage 2 (mild) (4) Diabetes mellitus Current visit: No Status: Chronic 1. Will stop oral meds and continue Levemir with SSI. 2. Monitor glucose and adjust insulin as needed. Qualifiers: Diabetes mellitus type: type 2 Diabetes mellitus complication status: with unspecified complications Diabetes mellitus intermodal dispatcher insulin use: with fdc use Qualified Code(s): E11.8 - Type 2 diabetes mellitus with unspecified complications; Z79.4 - prison (current) use of insulin (5) DVT prophylaxis Current visit: Yes Status: Acute 1. Heparin SQ. Internal Medicine - H&P: HPI Chief complaint: abdominal pain Admitted From: Emergency Dept Plans for Post Hospital Care: Home History of present illness: Mr. Quiroz is a 71 year old male who presents with sudden onset of abdominal pain last night, which has progressively worsened since then. Pain became unbearable today despite having pain medications at home. He therefore came to the ER where her EF evaluation. CT scan was performed, but there was no significant pathology other than a small calculus in the cystic duct stump. Of note, patient had an ERCP performed yesterday with stent removal yesterday. He had gallbladder surgically removed in August of this year. He was doing well until yesterday shortly after his ERCP procedure. He then developed this pain which has progressively worsened. He denies any fevers or chills. He has had a little nausea but no vomiting. He denies any diarrhea. He's had abdominal pain in his his right upper quadrant and it radiates to his shoulder. It is very similar to his original symptoms of biliary colic. Dr. Avila was contacted by ER and will see patient in consultation for further workup and guidance. Past Med Surg Social Fam HX - Past Medical History Attestation: Yes The following information was validated with the patient. Source: patient, old records reviewed Medical history: arthritis, cancer (kidney cancer s/p nephrectomy 2 months ago) , COPD, coronary artery disease, diabetes, hyperlipidemia, hypertension, myocardial infarction Psychiatric history: anxiety, depression - Past Surgical History Surgical History: cancer surgery (nephrectomy), cholecystectomy, ureteral stent - Social History Smoking Status: Never smoker Smokeless Tobacco Status: No Alcohol use: none Drug use: none Current living situation: Home Activity Level: Independent ambulation Recent Out of Country Travel Within the Last 8 Weeks: No - Family History Mother Hx Family Neurologic Disorders: Yes (cva) Internal Medicine - H&P: Meds GlipiZIDE [Glipizide ER] 10 mg PO DAILY 07/29/16 [History] Insulin DETEMIR [Levemir] 25 unit SQ HS 07/29/16 [History] Isosorbide MONOnitrate (24 HR) [Imdur] 30 mg PO DAILY 07/29/16 [History] Metoprolol XL (24 HR) Succ [Toprol Xl] 25 mg PO HS 07/29/16 [History] Pioglitazone [Actos] 30 mg PO DAILY 07/29/16 [History] Sertraline [Zoloft] 100 mg PO DAILY 07/29/16 [History] amLODIPine [Norvasc] 2.5 mg PO DAILY 07/29/16 [History] Gabapentin [Neurontin] 100 mg PO QAM 09/08/16 [History] Lisinopril [Zestril] 20 mg PO DAILY 11/03/16 [History] Aspirin Enteric Coated [Aspirin EC] 81 mg PO DAILY 01/08/17 [History] Atorvastatin [Lipitor] 40 mg PO HS 01/08/17 [History] Celecoxib [Celebrex] 200 mg PO DAILY 01/08/17 [History] Cilostazol [Pletal] 100 mg PO BID 01/08/17 [History] Gabapentin [Neurontin] 200 mg PO HS 01/08/17 [History] HYDROcodone/Acet 5/325 mg [[place] 5-325 mg] 1 - 2 tab PO Q6H PRN #30 tab [Rx] [place]-3/Dha/Epa/Fish Oil [Fish Oil 1,000 mg Softgel] 1,000 mg PO DAILY 01/08/17 [History] 3 Allergy/AdvReac Type Severity Reaction Status Date / Time Cefaclor [From Ceclor] AdvReac Chest Pain Verified 01/08/17 12:11 metformin AdvReac Diarrhea Verified 01/08/17 12:11 - Constitutional Constitutional: no chills, no fever(s), no night sweats - EENT Eyes: no blurry vision, no change in vision Ears: no tinnitus Nose, mouth and throat: no nasal congestion, no sinus pressure, no sore throat - Cardiovascular Cardiovascular ROS IM: no chest pain, no dyspnea, no dyspnea on exertion, no edema, no lightheadedness, no palpitations - Respiratory Respiratory: no cough, no hemoptysis - Gastrointestinal Gastrointestinal: abdominal pain, nausea, no diarrhea, no hematemesis, no hematochezia, no melena, no vomiting - Genitourinary Genitourinary ROS male: dysuria, urinary frequency, no flank pain, no hematuria - Musculoskeletal Musculoskeletal ROS IM: no arthralgias, no back pain - Integumentary Integumentary IM: no rash, no jaundice - Neurological Neurological ROS: no disequilibrium, no dizziness, no focal weakness, no frequent falls - Psychiatric Psychiatric: no anxiety, no depression - Endocrine Endocrine IM: no polydipsia, no polyuria - Hematologic/Lymphatic Hematologic/Lymphatic: no lymphadenopathy - Allergic/Immunologic Allergic/Immunologic: GI upset with certain foods, no wheezing - Constitutional Vitals: Temp Pulse Resp BP Pulse Ox 98.5 F 89 18 111/61 93 01/08/17 16:18 01/08/17 16:18 01/08/17 16:18 01/08/17 16:18 01/08/17 16:25 General appearance: Present: cooperative, mild distress, A&O X 3, pleasant, answers questions appropriately - Head Head exam: Present: atraumatic, normal inspection - Eye Eye exam: Present: EOMI, PERRL. Absent: scleral icterus Pupils: Present: normal accommodation - ENT ENT exam: Present: mucous membranes dry, normal exam - Neck Neck exam general surgery: Present: full ROM, supple. Absent: tenderness - Expanded Neck Exam Neck exam: Absent: carotid bruit - Respiratory Respiratory exam: Present: CTAB. Absent: chest wall tenderness, rales, respiratory distress, rhonchi, wheezes - Cardiovascular Cardiovascular exam: Present: RRR, +S1, +S2. Absent: diastolic murmur, systolic murmur - GI/Abdominal GI/Abdominal exam: Present: normal bowel sounds, soft, tenderness (RUQ and mid- epigastric pain), no peritoneal signs. Absent: guarding, hepatomegaly, mass, rebound, splenomegaly - Extremities Exam Extremities exam: Present: full ROM, warm. Absent: calf tenderness, joint swelling, pedal edema - Back Exam Back exam: Absent: CVA tenderness (L), CVA tenderness (R) - Neurological Exam Neurological exam: Present: alert, CN II-XII intact, oriented X3, no focal deficits - Psychiatric Psychiatric exam: Present: normal affect, normal mood - Skin Skin exam: Present: dry, warm. Absent: rash Internal Med - H&P Results - Labs CBC & Chem 7: 01/08/17 13:24 01/08/17 13:24 - Diagnostic Studies CT scan - abdomen Additional comments: Report reviewed: 5 mm cystic duct stump calculus; pancreas appears normal
[2017-01-08] MEDS: 0.9 % Sodium Chloride 1,000 ML IVC SCH (20:52)
[2017-01-08] MEDS: Gabapentin 100 MG CAPSULE PO SCH (20:56)
[2017-01-08] MEDS: *HR* Morphine 2 MG/ML SYRINGE IVP PRN (20:57)
[2017-01-08] MEDS: Metoprolol XL (24 HR) Succ 25 MG TAB.ER.24H PO SCH (20:57)
[2017-01-08] MEDS ORDERED: NON-FORMULARY MEDICATION 1 EACH EACH (Insulin Detemir 20 UNIT) SQ SCH (21:00)
[2017-01-08] MEDS: Pantoprazole 40 MG VIAL IVP SCH (21:01)
[2017-01-08] MEDS: Insulin DETEMIR 100 UNIT/ML X5UNITS SQ SCH (21:03)
[2017-01-08 21:31] LABS: Hemoglobin A1C 6.3 %
[2017-01-08 22:04] LABS: Bilirubin,Urine Negative (Negative); Blood,Urine Small (Negative); Clarity,Urine Clear (Clear); Color,Urine Yellow (Yellow); Glucose,Urine (UA) Normal (Normal); Ketones,Urine Negative (Negative); Leukocyte Esterase,Urine Negative (Negative); Nitrite,Urine Negative (Negative); Protein,Urine Negative (Neg-Trace); Specific Gravity,Urine 1.017 (1.010-1.025); Urobilinogen,Urine Normal (Normal)
[2017-01-08 22:06] LABS: Bacteria,Urine None Seen per hpf (None-Few); Hyaline Casts,Urine None Seen per lpf (None-Few); RBC,Urine 0-3 per hpf (0-3); Squamous Epithelial Cell,Urine Many per lpf (None-Few); WBC,Urine 0-3 per hpf (0-3)
[2017-01-09] MEDS: *HR* Morphine 2 MG/ML SYRINGE IVP PRN ×3 (04:14→16:51)
[2017-01-09] MEDS: Pantoprazole 40 MG VIAL IVP SCH (05:26)
[2017-01-09] MEDS: *HR* Heparin 5,000 UNIT/ML VIAL SQ SCH ×2 (05:28→17:40)
[2017-01-09 06:24] LABS: Basophils % 0.4 %; Eosinophils # 0.1 K/mcL (0.0-0.6); Eosinophils % 0.5 %; Hematocrit 28.5 % (37.5-50.1); INR 1.1; Immature Granulocytes % 0.4 % (0-4); Lymphocytes # 1.7 K/mcL (0.6-4.6); Lymphocytes % 15.8 %; Mean Corpuscular HGB Conc 31.6 g/dL (31.6-35.5); Mean Corpuscular Hemoglobin 27.6 pg (28.0-33.3); Mean Corpuscular Volume 87.4 fL (83.0-100.0); Mean Platelet Volume 9.7 fL (9.4-12.4); Monocytes # 1.4 K/mcL (0.0-1.3); Monocytes % 12.7 %; Neutrophils # 7.5 K/mcL (1.6-8.9); Platelet Count 162 K/mcL (140-400); Prothrombin Time 12.4 Seconds (9.4-12.1); Red Blood Count 3.26 M/mcL (4.19-5.50); Red Cell Distribution Width 15.4 % (11.5-14.5); Segmented Neutrophils % 70.2 %
[2017-01-09 06:27] LABS: Activated Partial Thrombo Time 31.2 Seconds (26.0-36.0)
[2017-01-09 06:45] LABS: Albumin 2.8 g/dL (3.5-5.0); Albumin/Globulin Ratio 0.9 (1.1-2.2); Bilirubin,Total 0.3 mg/dL (0.2-1.2); Chol/HDL Ratio 2.2 (0-4.9); Globulin 3.1 g/dL (2.4-3.5); Magnesium 1.4 mg/dL (1.6-2.6); Potassium 4.1 mEq/L (3.5-4.5); Total Protein 5.9 g/dL (6.0-8.3)
[2017-01-09] MEDS: Insulin LISPRO 300 UNITS/3 ML VIAL SQ SCH ×3 (08:03→16:47)
[2017-01-09] MEDS: Gabapentin 100 MG CAPSULE PO SCH ×2 (08:48→19:19)
[2017-01-09] MEDS: Aspirin Enteric Coated 81 MG Tablet PO SCH (08:48)
[2017-01-09] MEDS: amLODIPine 5 MG TABLET PO SCH (08:48)
[2017-01-09] MEDS: Isosorbide MONOnitrate (24 HR) 30 MG TAB.ER.24H PO SCH (08:48)
[2017-01-09] MEDS: 0.9 % Sodium Chloride 1,000 ML IVC SCH ×2 (08:55→21:22)
--- NOTE | 2017-01-09 10:01 | Internal Med Progress Note ---
<Polina Pena - Last Filed: 01/09/17 13:25> Date of Encounter: 01/09/17 Time of Encounter: 09:58 - Assessment and plan (1) RUQ abdominal pain Current Visit: Yes Status: Acute Assessment and plan: Patient reports close cystectomy 5 to 6 weeks ago, ERCP with stent removal on Vgrepvbzq92/4/2017 CT abdomen showed 5 mm oculus and cystic duct stump, no evidence of biliary duct obstruction this is choledocholithiasis most likely not acute pancreatitis due to lipase of 18 patient reports that his pain has improved GI recommends conservative management due to risk of dislodging surgical clip from cholecystectomy if attempt at removal of stone via ERCP. May need repeat CT abdomen of overnight he develops diaphoresis and fever. -Cipro day 2 -GI consulted -blood culture pending -urine culture pending -trend LFTs -continue IV pain medication, nausea medications, and IV fluids -clear liquids (2) CAD (coronary artery disease) Current Visit: Yes Status: Chronic Assessment and plan: Patient has a history of [place] with 2 stents -continue medications: amlodipine, isosorbide, metoprolol, lisinopril, aspirin -continue telemetry Qualifiers: Coronary Disease-Associated Artery/Lesion type: [place] artery [place] vs. transplanted heart: [place] heart Associated angina: without angina Qualified Code(s): I25.10 - Atherosclerotic heart disease of [place] coronary artery without angina pectoris (3) CKD (chronic kidney disease) Current Visit: No Status: Chronic Assessment and plan: s/p right nephrectomy due to kidney cancer elevated creatinine 1.52 -continue to monitor renal function -nephrology follow-up outpatient Qualifiers: Chronic kidney disease stage: stage 2 (mild) Qualified Code(s): N18.2 - Chronic kidney disease, stage 2 (mild) (4) Diabetes mellitus Current Visit: No Status: Chronic Assessment and plan: Patient has a history of diabetes on insulin -Continue low-dose insulin -continue to monitor glucose Qualifiers: Diabetes mellitus type: type 2 Diabetes mellitus complication status: with unspecified complications 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 - Constitutional Vitals: Temp Pulse Resp BP Pulse Ox 98.6 F 82 16 112/61 94 01/09/17 06:45 01/09/17 06:45 01/09/17 06:45 01/09/17 06:45 01/09/17 06:45 General appearance: Present: cooperative, mild distress, A&O X 3, pleasant, answers questions appropriately Exam: Gen.: Vitals noted. No acute distress. AAOx3 HEENT: oropharynx clear, Normocephalic, atraumatic Cardiac: RRR, no murmur, +S1/S2 Pulmonary: CTA bilaterally, no wheezes, rales or rhonchi, equal chest expansion Abdomen: soft, minimal right upper quadrant tender, Bowel sounds noted, no guarding Extremities: no BLE edema, nontender calf, no cyanosis or clubbing Neuro: A&Ox3, moves all extremities, no focal deficits Psych: Appropriate mood and behavior Internal Medicine: Result - Labs CBC & Chem 7: 01/09/17 06:01 01/09/17 06:01 Labs: Short CBC 01/09/17 Range/Units 06:01 WBC 10.7 (4.3-11.1) K/mcL Hgb 9.0 L D (12.9-16.9) g/dL Hct 28.5 L (37.5-50.1) % Plt Count 162 (140-400) K/mcL Neutrophils # 7.5 (1.6-8.9) K/mcL BMP 01/09/17 06:01 Sodium 140 Potassium 4.1 Chloride 111 H Carbon Dioxide 25 BUN 27 H Creatinine 1.52 H Glucose 88 Calcium 8.0 L Liver Function 01/09/17 Range/Units 06:01 Total Bilirubin 0.3 (0.2-1.2) mg/dL AST 17 (5-34) Units/L ALT 14 (0-55) Units/L Alkaline Phosphatase 50 (38-126) Units/L Albumin 2.8 L (3.5-5.0) g/dL Urine 01/08/17 Range/Units 21:52 Urine Color Yellow (Yellow) Urine Clarity Clear (Clear) Urine pH 6.0 (5.0-8.0) pH Units Ur Specific [place] 1.017 (1.010-1.025) Urine Protein Negative (Neg-Trace) mg/dL Urine Glucose (UA) Normal (Normal) mg/dL - ABG Interpretation ABG results: PT/INR, D-dimer PT 12.4 Seconds (9.4-12.1) H 01/09/17 06:01 Consult Discharge Plan - Plan Referrals: Marc Solorio CNP [Primary Care Provider] - <Kameron Schaeffer - Last Filed: 01/09/17 14:09> Date of Encounter: 01/09/17 - Constitutional Vitals: Temp Pulse Resp BP Pulse Ox 97.9 F 73 16 116/66 93 01/09/17 10:42 01/09/17 10:42 01/09/17 10:42 01/09/17 10:42 01/09/17 10:42 Internal Medicine: Result - Labs CBC & Chem 7: 01/09/17 06:01 01/09/17 06:01 Labs: Short CBC 01/09/17 Range/Units 06:01 WBC 10.7 (4.3-11.1) K/mcL Hgb 9.0 L D (12.9-16.9) g/dL Hct 28.5 L (37.5-50.1) % Plt Count 162 (140-400) K/mcL Neutrophils # 7.5 (1.6-8.9) K/mcL BMP 01/09/17 06:01 Sodium 140 Potassium 4.1 Chloride 111 H Carbon Dioxide 25 BUN 27 H Creatinine 1.52 H Glucose 88 Calcium 8.0 L Liver Function 01/09/17 Range/Units 06:01 Total Bilirubin 0.3 (0.2-1.2) mg/dL AST 17 (5-34) Units/L ALT 14 (0-55) Units/L Alkaline Phosphatase 50 (38-126) Units/L Albumin 2.8 L (3.5-5.0) g/dL Urine 01/08/17 Range/Units 21:52 Urine Color Yellow (Yellow) Urine Clarity Clear (Clear) Urine pH 6.0 (5.0-8.0) pH Units Ur Specific [place] 1.017 (1.010-1.025) Urine Protein Negative (Neg-Trace) mg/dL Urine Glucose (UA) Normal (Normal) mg/dL - ABG Interpretation ABG results: PT/INR, D-dimer PT 12.4 Seconds (9.4-12.1) H 01/09/17 06:01 - Attending Attestation I have independently seen and examined this patient on 01/09/17 and discussed plan of care with the resident physician and the patient 71 M with CAD, CKD III, s/p R nephrectomy, HTN, HLD, DM, He is s/p lap serene, and had removal of ERCP stent prior to presentation he is admitted following an episode of abdominal pain. He denies new complains at review and reports clinical improvement he however had leukocytsis and fever on admission, no clear source Physical exam, including abdominal exam is unremarkable, he is not jaundiced labs and Imaging reviewed: LFTs normal, WBC now normal. Chem is at baseline. Lipase is normal. Abd CT: cystic duct stone A/P: Abdominal pain, SIRS, CAD/HTN/HLD. Agree with plan as in resident physician's documentation. patient does not have pancreatitis and ther is currently no source of sepsis. UA is clean, no chest symptoms GI is following, no intervention at time of review Continue to monitor closely Rest as in resident physician's documentation
--- NOTE | 2017-01-09 10:20 | Gastroenterology Consult Note ---
<Alem Stovall - Last Filed: 01/09/17 12:58> Date of Encounter: 01/09/17 Time of Encounter: 09:45 - Assessment and plan (1) RUQ abdominal pain Current Visit: Yes Status: Acute Assessment and plan: Pt is status post CBD stent removal 01/07/17. He had severe abdominal pain the evening following the procedure. Ct abdomen shows 5 mm stone in cystic duct stump. Pain is improved, he states it comes and goes, and is worse with movement. Labs are normal. It is unclear if pain is related to cystic duct stump stone. If attempt to remove via ERCP will be very difficult and there is a risk of dislodging surgical clip from cholecystectomy, and worsening his symptoms. Would recommend conservative management and monitoring of labs. He also had fever and diaphoresis overnight if continues he may need repeat CT abdomen to evaluate for other causes of abdominal pain. - Time Spent With Patient Total time spent is greater than 50% in coordination of care (as documented) at patient's floor/unit and/or counseling patient: GI History of Present Illness - Data of Consult Patient: known to practice within the last 3 years Consult date: 01/09/17 Requesting Physician: Kameron Schaeffer MD - Consult Narrative Reason for consult: abdominal pain s/p ERCP History of present illness: Mr. Quiroz is a 71-year-old male who presented with severe abdominal pain. He has a past medical history of arthritis, renal carcinoma status post nephrectomy 2 months ago, COPD, coronary artery disease, diabetes, hyperlipidemia, hypertension, and anxiety, depression. Surgical history includes nephrectomy, cholecystectomy in August and ureteral stent. He had ERCP 01/07/17 with CBD stent removal. He states he did well until 7 pm the night of the procedure then started having severe RUQ pain radiating to the right shoulder. He states pain was very similar to biliary colic pain he had before but much worse. He had fever of 101 last night and states he had severe diaphoresis. He denied any nausea or vomiting. He is on aspirin, pletal and Celebrex at home. Also note he is on Actos at home. CT abdomen showed a 5 mm radiopaque calculus in the cystic duct stump. Labs show hemoglobin 9.0 platelet count 162 INR 1.1 sodium 140, creatinine 1.52, BUN 27 calcium 8.0, magnesium 1.4, albumin 2.8, AST 17, AST 14, amylase 51, lipase 99. Colonoscopy: 2012 (DR Cochran) diverticulosis EGD: 01/07/17 ERCP CBD stent removal NSAIDS: celebrex ASA: yes Anticougulants: pletal Past Med Surg Social Fam HX - Past Medical History Medical history: arthritis, COPD, coronary artery disease, diabetes, hyperlipidemia, hypertension, myocardial infarction Psychiatric history: anxiety, depression - Past Surgical History Surgical History: cancer surgery (nephrectomy), cholecystectomy, ureteral stent - Social History Smoking Status: Never smoker Smokeless Tobacco Status: No Alcohol use: none Drug use: none - Family History Mother Hx Family Neurologic Disorders: Yes (cva) Review of Systems: GI: as per [place] GENERAL: denies fever, has some chills, diaphoretic EYES: denies yellow discoloration ENT: denies pain with swallowing or difficulty swallowing CARDIO: denies chest pain, palpitations RESP: No Shortness of breath with exertion : denies change in color of urine NEURO: denies any weakness HEME: Denies any bruising MS: denies joint pain, joint swelling or back pain. DERM: denies rash or itching PSYCH: Denies history of anxiety or depression - Constitutional Vitals: Temp Pulse Resp BP Pulse Ox 98.6 F 82 16 112/61 94 01/09/17 06:45 01/09/17 06:45 01/09/17 06:45 01/09/17 06:45 01/09/17 06:45 Exam: CONSTITUTIONAL:~alert, no acute distress.~HEAD:~normocephalic.~EYES:~no jaundice.~NECK:~no obvious swelling.~HEART:~regular rate and rhythm, no murmurs. ~LUNGS:~bilateral good air entry.~ABDOMEN:~non distended, soft, mildly tender RUQ, no masses pulpable, no organomegaly, RLQ scar well healed.~RECTAL EXAM:~ Deferred.~EXTREMITIES:~no clubbing, cyanosis, trace BLE edema.~SKIN:~no stigmata of chronic liver disease.~NEUROLOGIC:~no obvious focal defect.~~~~ Results - Labs CBC & Chem 7: 01/09/17 06:01 01/09/17 06:01 Labs: Last Result Calcium 8.0 mg/dL (8.6-10.8) L 01/09/17 06:01 Triglycerides 53 mg/dL (< 150) 01/09/17 06:01 Entire Visit Hgb 9.0 g/dL (12.9-16.9) L D 01/09/17 06:01 Hct 28.5 % (37.5-50.1) L 01/09/17 06:01 PT 12.4 Seconds (9.4-12.1) H 01/09/17 06:01 Total Bilirubin 0.3 mg/dL (0.2-1.2) 01/09/17 06:01 AST 17 Units/L (5-34) 01/09/17 06:01 ALT 14 Units/L (0-55) 01/09/17 06:01 Amylase 51 Units/L (25-125) 01/09/17 06:01 Lipase 18 Units/L (8-78) 01/09/17 06:01 - ABG ABG results: PT/INR, D-dimer PT 12.4 Seconds (9.4-12.1) H 01/09/17 06:01 Consult Discharge Plan - Plan Referrals: Marc Solorio DAIRY FARM SUPERVISOR [Primary Care Provider] - <Luis Avila - Last Filed: 01/09/17 13:17> Date of Encounter: 01/09/17 Time of Encounter: 13:00 - Time Spent With Patient Total time spent is greater than 50% in coordination of care (as documented) at patient's floor/unit and/or counseling patient: GI History of Present Illness - Data of Consult Requesting Physician: Kameron Schaeffer MD - Consult Narrative History of present illness: Mr. Quiroz is a 71 year old male - Constitutional Vitals: Temp Pulse Resp BP Pulse Ox 97.9 F 73 16 116/66 93 01/09/17 10:42 01/09/17 10:42 01/09/17 10:42 01/09/17 10:42 01/09/17 10:42 Results - Labs CBC & Chem 7: 01/09/17 06:01 01/09/17 06:01 Labs: Last Result Calcium 8.0 mg/dL (8.6-10.8) L 01/09/17 06:01 Triglycerides 53 mg/dL (< 150) 01/09/17 06:01 Entire Visit Hgb 9.0 g/dL (12.9-16.9) L D 01/09/17 06:01 Hct 28.5 % (37.5-50.1) L 01/09/17 06:01 PT 12.4 Seconds (9.4-12.1) H 01/09/17 06:01 Total Bilirubin 0.3 mg/dL (0.2-1.2) 01/09/17 06:01 AST 17 Units/L (5-34) 01/09/17 06:01 ALT 14 Units/L (0-55) 01/09/17 06:01 Amylase 51 Units/L (25-125) 01/09/17 06:01 Lipase 18 Units/L (8-78) 01/09/17 06:01 - ABG ABG results: PT/INR, D-dimer PT 12.4 Seconds (9.4-12.1) H 01/09/17 06:01 - Attending Attestation I examined this patient and my medical decision-making was reviewed with the Resident Physician. I agree with the documented findings, disposition and treatment plan as described except to the extent set forth below.
[2017-01-09] MEDS ORDERED: Magnesium Sulfate 2 GM in D5% in Water 100 ML IVPB ONE (11:23)
[2017-01-09] MEDS ORDERED: Furosemide 40 MG/4 ML VIAL IVP ONE (18:44)
--- NOTE | 2017-01-09 19:10 | Electrocardiograph Report ---
[place] [id number] Test Date: 2017-01-08 Pat Name: Marc Quiroz Department: 115 Room: 3A24 Gender: M Office Technologist: [id number] : 1945 Requested By: Harris Whitaker Order Number: [id number] Reading MD: Lit Almonte MD Measurements Intervals [place] Rate: 75 P: 71 MS: 171 QRS: 33 QRSD: 113 T: 48 QT: 359 QTc: 388 Interpretive Statements SINUS RHYTHM INFERIOR MYOCARDIAL INFARCTION, PROBABLY OLD Electronically Signed On 01-09-2017 19:09:05 EDT by Lit Almonte MD
[2017-01-09] MEDS: Acetaminophen 325 MG TABLET PO PRN (19:19)
[2017-01-09] MEDS: Metoprolol XL (24 HR) Succ 25 MG TAB.ER.24H PO SCH (19:19)
[2017-01-09] MEDS: Insulin DETEMIR 100 UNIT/ML X5UNITS SQ SCH (21:20)
[2017-01-10 04:10] LABS: Basophils % 0.3 %; Eosinophils % 0.4 %; Hematocrit 31.3 % (37.5-50.1); Hemoglobin 9.9 g/dL (12.9-16.9); Immature Granulocytes % 0.3 % (0-4); Lymphocytes # 1.4 K/mcL (0.6-4.6); Lymphocytes % 13.1 %; Mean Corpuscular HGB Conc 31.6 g/dL (31.6-35.5); Mean Corpuscular Hemoglobin 27.2 pg (28.0-33.3); Mean Platelet Volume 9.5 fL (9.4-12.4); Monocytes # 1.1 K/mcL (0.0-1.3); Monocytes % 10.6 %; Platelet Count 184 K/mcL (140-400); Red Blood Count 3.64 M/mcL (4.19-5.50); Red Cell Distribution Width 15.1 % (11.5-14.5); Segmented Neutrophils % 75.3 %
[2017-01-10 04:43] LABS: Albumin 2.8 g/dL (3.5-5.0); Albumin/Globulin Ratio 0.8 (1.1-2.2); Bilirubin,Total 0.5 mg/dL (0.2-1.2); Calcium 8.4 mg/dL (8.6-10.8); Globulin 3.5 g/dL (2.4-3.5); Potassium 3.9 mEq/L (3.5-4.5); Total Protein 6.3 g/dL (6.0-8.3)
[2017-01-10] MEDS: *HR* Morphine 2 MG/ML SYRINGE IVP PRN ×2 (05:19→21:53)
[2017-01-10] MEDS: Pantoprazole 40 MG VIAL IVP SCH (05:21)
[2017-01-10] MEDS: *HR* Heparin 5,000 UNIT/ML VIAL SQ SCH ×2 (05:23→17:08)
[2017-01-10] MEDS: Insulin LISPRO 300 UNITS/3 ML VIAL SQ SCH ×3 (08:49→16:34)
[2017-01-10] MEDS: Gabapentin 100 MG CAPSULE PO SCH ×2 (09:39→21:31)
[2017-01-10] MEDS: amLODIPine 5 MG TABLET PO SCH (09:40)
[2017-01-10] MEDS: Aspirin Enteric Coated 81 MG Tablet PO SCH (09:41)
[2017-01-10] MEDS: Isosorbide MONOnitrate (24 HR) 30 MG TAB.ER.24H PO SCH (09:41)
--- NOTE | 2017-01-10 11:41 | Internal Med Progress Note ---
Date of Encounter: 01/10/17 Time of Encounter: 11:39 - Assessment and plan (1) Hypoxia Current Visit: Yes Status: Acute Assessment and plan: Patient developed hypoxia with tachypnea yesterday with CXR showing pulmonary vascular congestion, mild, he improved with IV lasix and BiPAp Continue O2 supplements for now Currently on 3L (2) UTI (urinary tract infection) Current Visit: Yes Status: Acute Assessment and plan: Urine culture growing Enterobacter, patient is on Ciprofloxacin, continue same and await final urine cultures Qualifiers: Urinary tract infection type: acute cystitis Hematuria presence: with hematuria Qualified Code(s): N30.01 - Acute cystitis with hematuria (3) CKD (chronic kidney disease) Current Visit: Yes Status: Chronic Assessment and plan: Cr is at baseline. 1.6 today, K is WNL Qualifiers: Chronic kidney disease stage: stage 2 (mild) Qualified Code(s): N18.2 - Chronic kidney disease, stage 2 (mild) (4) Diabetes mellitus Current Visit: Yes Status: Chronic Assessment and plan: Patient has a history of diabetes on insulin -Continue low-dose insulin -continue to monitor glucose Qualifiers: Diabetes mellitus type: type 2 Diabetes mellitus complication status: with unspecified complications Diabetes mellitus predatory animal exterminator insulin use: with predatory animal exterminator use Qualified Code(s): E11.8 - Type 2 diabetes mellitus with unspecified complications; Z79.4 - retirement (current) use of insulin (5) Choledocholithiasis Current Visit: Yes Status: Chronic (6) COPD (chronic obstructive pulmonary disease) Current Visit: Yes Status: Chronic Assessment and plan: Duonebs prn Chest is CTAB this morning Qualifiers: COPD type: unspecified COPD Qualified Code(s): J44.9 - Chronic obstructive pulmonary disease, unspecified (7) Depression Current Visit: Yes Status: Chronic Assessment and plan: Continue home meds Qualifiers: Depression Type: unspecified Qualified Code(s): F32.9 - Major depressive disorder, single episode, unspecified (8) RUQ abdominal pain Current Visit: Yes Status: Acute Assessment and plan: Patient reports close cystectomy 5 to 6 weeks ago, ERCP with stent removal on Onbptopno55/4/2017 CT abdomen showed 5 mm oculus and cystic duct stump, no evidence of biliary duct obstruction this is choledocholithiasis most likely not acute pancreatitis due to lipase of 18 patient reports that his pain has improved GI recommends conservative management due to risk of dislodging surgical clip from cholecystectomy if attempt at removal of stone via ERCP. May need repeat CT abdomen of overnight he develops diaphoresis and fever. -Cipro day 3 -GI consulted -blood culture pending -urine culture with Enterococcus, LFTs unremarkable Advance diet, GI is following (9) CAD (coronary artery disease) Current Visit: Yes Status: Chronic Assessment and plan: Patient has a history of [place] with 2 stents continue medications: amlodipine, isosorbide, metoprolol, lisinopril, aspirin continue telemetry Qualifiers: Coronary Disease-Associated Artery/Lesion type: [place] artery [place] vs. transplanted heart: [place] heart Associated angina: without angina Qualified Code(s): I25.10 - Atherosclerotic heart disease of [place] coronary artery without angina pectoris (10) DVT prophylaxis Current Visit: Yes Status: Acute Assessment and plan: Heparin sq - Subjective Interval history: Seen and evaluated at bedside No new complains - Constitutional Vitals: Temp Pulse Resp BP Pulse Ox 98.9 F 69 18 125/63 95 01/10/17 11:06 01/10/17 11:06 01/10/17 11:06 01/10/17 11:06 01/10/17 11:06 Gen.: Vitals noted. No acute distress. AAOx3 HEENT: oropharynx clear, Normocephalic, atraumatic Cardiac: RRR, no murmur, +S1/S2 Pulmonary: CTA bilaterally, no wheezes, rales or rhonchi, equal chest expansion Abdomen: soft, not tender, Bowel sounds noted, no guarding Extremities: no BLE edema, non-tender calf, no cyanosis or clubbing Neuro: A&Ox3, moves all extremities, no focal deficits Psych: Appropriate mood and behavior General appearance: Present: cooperative, A&O X 3, pleasant, no acute distress, answers questions appropriately Internal Medicine: Result - Labs CBC & Chem 7: 01/10/17 03:26 01/10/17 03:26 Labs: Short CBC 01/10/17 Range/Units 03:26 WBC 10.6 (4.3-11.1) K/mcL Hgb 9.9 L (12.9-16.9) g/dL Hct 31.3 L (37.5-50.1) % Plt Count 184 (140-400) K/mcL Neutrophils # 8.0 (1.6-8.9) K/mcL BMP 01/10/17 03:26 Sodium 139 Potassium 3.9 Chloride 104 Carbon Dioxide 29 BUN 24 Creatinine 1.60 H Glucose 113 H Calcium 8.4 L Liver Function 01/10/17 Range/Units 03:26 Total Bilirubin 0.5 (0.2-1.2) mg/dL AST 14 (5-34) Units/L ALT 14 (0-55) Units/L Alkaline Phosphatase 52 (38-126) Units/L Albumin 2.8 L (3.5-5.0) g/dL - ABG Interpretation ABG results: PT/INR, D-dimer PT 12.4 Seconds (9.4-12.1) H 01/09/17 06:01 - Impressions Impressions Chest X-Ray 01/09/17 17:45 IMPRESSION: Mild pulmonary vascular congestion without overt edema. Mild bibasilar atelectasis. D/ / 01/09/2017 18:30:20 Inessa Mathew MD / mai Interpreting Provider: Inessa Mathew MD Consult Discharge Plan - Plan Referrals: Marc Solorio CNP [Primary Care Provider] -
[2017-01-10] MEDS: Acetaminophen 325 MG TABLET PO PRN (17:58)
[2017-01-10] MEDS: Insulin DETEMIR 100 UNIT/ML X5UNITS SQ SCH (21:31)
[2017-01-10] MEDS: Metoprolol XL (24 HR) Succ 25 MG TAB.ER.24H PO SCH (21:31)
[2017-01-11 04:38] LABS: Basophils % 0.6 %; Eosinophils # 0.3 K/mcL (0.0-0.6); Eosinophils % 4.2 %; Hematocrit 30.4 % (37.5-50.1); Hemoglobin 9.4 g/dL (12.9-16.9); Immature Granulocytes % 0.3 % (0-4); Lymphocytes # 1.2 K/mcL (0.6-4.6); Mean Corpuscular HGB Conc 30.9 g/dL (31.6-35.5); Mean Corpuscular Hemoglobin 26.7 pg (28.0-33.3); Mean Corpuscular Volume 86.4 fL (83.0-100.0); Mean Platelet Volume 9.8 fL (9.4-12.4); Monocytes # 0.7 K/mcL (0.0-1.3); Monocytes % 11.1 %; Neutrophils # 4.3 K/mcL (1.6-8.9); Platelet Count 184 K/mcL (140-400); Red Blood Count 3.52 M/mcL (4.19-5.50); Red Cell Distribution Width 14.8 % (11.5-14.5); Segmented Neutrophils % 65.8 %
[2017-01-11 04:51] LABS: Calcium 8.7 mg/dL (8.6-10.8); Potassium 3.9 mEq/L (3.5-4.5)
[2017-01-11] MEDS: Pantoprazole 40 MG VIAL IVP SCH (06:18)
[2017-01-11] MEDS: *HR* Heparin 5,000 UNIT/ML VIAL SQ SCH ×2 (07:11→17:42)
[2017-01-11] MEDS: Insulin LISPRO 300 UNITS/3 ML VIAL SQ SCH ×3 (08:07→16:33)
[2017-01-11] MEDS: Gabapentin 100 MG CAPSULE PO SCH ×2 (08:13→21:41)
[2017-01-11] MEDS: amLODIPine 5 MG TABLET PO SCH (08:13)
[2017-01-11] MEDS: Isosorbide MONOnitrate (24 HR) 30 MG TAB.ER.24H PO SCH (08:14)
[2017-01-11] MEDS: Aspirin Enteric Coated 81 MG Tablet PO SCH (08:14)
--- NOTE | 2017-01-11 11:09 | Internal Med Progress Note ---
Date of Encounter: 01/11/17 Time of Encounter: 11:09 - Assessment and plan (1) Hypoxia Current Visit: Yes Status: Resolved Assessment and plan: Patient developed hypoxia with tachypnea yesterday with CXR showing pulmonary vascular congestion, mild, he improved with IV lasix and BiPAp Resolved (2) UTI (urinary tract infection) Current Visit: Yes Status: Acute Assessment and plan: Urine culture growing Enterococcus patient is on Ciprofloxacin, continue same and await final urine cultures Qualifiers: Urinary tract infection type: acute cystitis Hematuria presence: with hematuria Qualified Code(s): N30.01 - Acute cystitis with hematuria (3) CKD (chronic kidney disease) Current Visit: Yes Status: Chronic Assessment and plan: Cr is at baseline. 1.49 today, K is WNL Qualifiers: Chronic kidney disease stage: stage 2 (mild) Qualified Code(s): N18.2 - Chronic kidney disease, stage 2 (mild) (4) Diabetes mellitus Current Visit: Yes Status: Chronic Assessment and plan: Patient has a history of diabetes on insulin -Continue low-dose insulin -continue to monitor glucose Qualifiers: Diabetes mellitus type: type 2 Diabetes mellitus complication status: with unspecified complications Diabetes mellitus terminal clerk insulin use: with snf use Qualified Code(s): E11.8 - Type 2 diabetes mellitus with unspecified complications; Z79.4 - termite exterminator (current) use of insulin (5) Choledocholithiasis Current Visit: Yes Status: Chronic Assessment and plan: Advance diet GI eval a.m prior to discharge As at last GI eval, no intervention is planned (6) COPD (chronic obstructive pulmonary disease) Current Visit: Yes Status: Chronic Assessment and plan: Duonebs prn Chest is CTAB this morning Qualifiers: COPD type: unspecified COPD Qualified Code(s): J44.9 - Chronic obstructive pulmonary disease, unspecified (7) Depression Current Visit: Yes Status: Chronic Assessment and plan: Continue home meds Qualifiers: Depression Type: unspecified Qualified Code(s): F32.9 - Major depressive disorder, single episode, unspecified (8) RUQ abdominal pain Current Visit: Yes Status: Acute Assessment and plan: Patient reports close cystectomy 5 to 6 weeks ago, ERCP with stent removal on Urhvudthf27/4/2017 CT abdomen showed 5 mm oculus and cystic duct stump, no evidence of biliary duct obstruction this is choledocholithiasis most likely not acute pancreatitis due to lipase of 18 patient reports that his pain has improved GI recommends conservative management due to risk of dislodging surgical clip from cholecystectomy if attempt at removal of stone via ERCP. May need repeat CT abdomen of overnight he develops diaphoresis and fever. -Cipro day 4 -GI is following -Abd pain due to choledocholithiasis, improved -Advance to regular diet -Possible d/c a.m if GI has n intervention planned (9) CAD (coronary artery disease) Current Visit: Yes Status: Chronic Assessment and plan: Patient has a history of [place] with 2 stents continue medications: amlodipine, isosorbide, metoprolol, lisinopril, aspirin continue telemetry Qualifiers: Coronary Disease-Associated Artery/Lesion type: [place] artery [place] vs. transplanted heart: [place] heart Associated angina: without angina Qualified Code(s): I25.10 - Atherosclerotic heart disease of [place] coronary artery without angina pectoris (10) DVT prophylaxis Current Visit: Yes Status: Acute Assessment and plan: Heparin sq - Subjective Interval history: Seen and evaluated at bedside No new complains Tolerating po Urine culture with enterococcus, awaiting final sensitivity - Constitutional Vitals: Temp Pulse Resp BP Pulse Ox 98.2 F 75 18 142/61 91 01/11/17 11:03 01/11/17 11:03 01/11/17 11:03 01/11/17 11:03 01/11/17 11:03 General appearance: Present: cooperative, A&O X 3, pleasant, no acute distress, answers questions appropriately - Head Head exam: Present: atraumatic, normocephalic - Eye Eye exam: Present: PERRL, conjuntiva pink, sclera anicteric Pupils: Present: PERRL - Neck Neck exam general surgery: Present: supple, trachea midline. Absent: lymphadenopathy - Respiratory Respiratory exam: Present: CTAB. Absent: accessory muscle use, rales, rhonchi, wheezes - Cardiovascular Cardiovascular exam: Present: irregular rhythm, +S1, +S2. Absent: diastolic murmur, gallop, rubs, systolic murmur - GI/Abdominal GI/Abdominal exam: Present: normal bowel sounds, soft, no peritoneal signs. Absent: distended, tenderness - Extremities Exam Extremities exam: Present: warm, radial pulses palpable and symmetrical. Absent : calf tenderness, cyanotic, pedal edema - Neurological Exam Neurological exam: Present: alert, CN II-XII intact, oriented X3, no focal deficits. Absent: pronater drift, facial droop, speech deficit - Skin Skin exam: Present: dry, intact Internal Medicine: Result - Labs CBC & Chem 7: 01/11/17 04:17 01/11/17 04:17 Labs: Short CBC 01/11/17 Range/Units 04:17 WBC 6.5 (4.3-11.1) K/mcL Hgb 9.4 L (12.9-16.9) g/dL Hct 30.4 L (37.5-50.1) % Plt Count 184 (140-400) K/mcL Neutrophils # 4.3 (1.6-8.9) K/mcL BMP 01/11/17 04:17 Sodium 140 Potassium 3.9 Chloride 106 Carbon Dioxide 30 H BUN 22 Creatinine 1.49 H Glucose 180 H Calcium 8.7 - ABG Interpretation ABG results: PT/INR, D-dimer PT 12.4 Seconds (9.4-12.1) H 01/09/17 06:01 Consult Discharge Plan - Plan Referrals: Marc Solorio SALES SPECIALIST [Primary Care Provider] -
[2017-01-11] MEDS: Insulin DETEMIR 100 UNIT/ML X5UNITS SQ SCH (21:41)
[2017-01-11] MEDS: Metoprolol XL (24 HR) Succ 25 MG TAB.ER.24H PO SCH (21:41)
[2017-01-12] MEDS: Pantoprazole 40 MG VIAL IVP SCH (05:28)
[2017-01-12] MEDS: *HR* Heparin 5,000 UNIT/ML VIAL SQ SCH (05:29)
[2017-01-12] MEDS: Insulin LISPRO 300 UNITS/3 ML VIAL SQ SCH ×2 (07:48→12:31)
--- NOTE | 2017-01-12 08:57 | Discharge Summary ---
<Kameron Schaeffer T - Last Filed: 01/12/17 12:57> Date of Encounter: 01/12/17 - Discharge Diagnosis (1) Hypoxia Status: Resolved (2) UTI (urinary tract infection) Status: Acute Qualifiers: Urinary tract infection type: acute cystitis Hematuria presence: with hematuria Qualified Code(s): N30.01 - Acute cystitis with hematuria (3) CKD (chronic kidney disease) Status: Chronic Qualifiers: Chronic kidney disease stage: stage 2 (mild) Qualified Code(s): N18.2 - Chronic kidney disease, stage 2 (mild) (4) Diabetes mellitus Status: Chronic Qualifiers: Diabetes mellitus type: type 2 Diabetes mellitus complication status: with unspecified complications Diabetes mellitus intermodal dispatcher insulin use: with intermodal dispatcher use Qualified Code(s): E11.8 - Type 2 diabetes mellitus with unspecified complications; 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 transplanted heart: rosebud heart Associated angina: without angina Qualified Code(s): I25.10 - Atherosclerotic heart disease of rosebud coronary artery without angina pectoris (10) DVT prophylaxis Status: Acute - Discharge Medications Prescriptions: Ciprofloxacin [Cipro] 500 mg PO BID 5 Days #10 tablet Home Medications: GlipiZIDE [Glipizide ER] 10 mg PO DAILY 07/29/16 [History] Insulin DETEMIR [Levemir] 25 unit SQ HS 07/29/16 [History] Isosorbide MONOnitrate (24 HR) [Imdur] 30 mg PO DAILY 07/29/16 [History] Metoprolol XL (24 HR) Succ [Toprol Xl] 25 mg PO HS 07/29/16 [History] Pioglitazone [Actos] 30 mg PO DAILY 07/29/16 [History] Sertraline [Zoloft] 100 mg PO DAILY 07/29/16 [History] amLODIPine [Norvasc] 2.5 mg PO DAILY 07/29/16 [History] Gabapentin [Neurontin] 100 mg PO QAM 09/08/16 [History] Lisinopril [Zestril] 20 mg PO DAILY 11/03/16 [History] Aspirin Enteric Coated [Aspirin EC] 81 mg PO DAILY 01/08/17 [History] Atorvastatin [Lipitor] 40 mg PO HS 01/08/17 [History] Celecoxib [Celebrex] 200 mg PO DAILY 01/08/17 [History] Cilostazol [Pletal] 100 mg PO BID 01/08/17 [History] Gabapentin [Neurontin] 200 mg PO HS 01/08/17 [History] HYDROcodone/Acet 5/325 mg [[place] 5-325 mg] 1 - 2 tab PO Q6H PRN #30 tab [Rx] [place]-3/Dha/Epa/Fish Oil [Fish Oil 1,000 mg Softgel] 1,000 mg PO DAILY 01/08/17 [History] Ciprofloxacin [Cipro] 500 mg PO BID 5 Days #10 tablet 01/12/17 [Rx] Allergies/Adverse Reactions: 3 Allergy/AdvReac Type Severity Reaction Status Date / Time Cefaclor [From Ceclor] AdvReac Chest Pain Verified 01/08/17 12:11 metformin AdvReac Diarrhea Verified 01/08/17 12:11 Date of admission: 01/08/17 20:19 Primary care physician: Marc Solorio CNP - Patient Status Disposition: Home, Self-Care Condition: Good - Discharge Instructions Follow Up With: Marc Solorio CNP [Primary Care Provider] - Luis Avila MD [Partnered Physician] - Additional Instructions: Finish the antibiotic to completion follow-up with Dr. Avila outpatient follow-up with your PCP in about a week or 2 return to the hospital should you develop fever, chills, shortness of breath, nausea, vomiting, worsening abdominal pain Hospital course: Mr. Quiroz is a 71 year old male - Time Spent with Patient Total time spent providing and/or coordinating discharge services: - Constitutional Vitals: Temp Pulse Resp BP Pulse Ox 98.0 F 75 16 102/67 94 01/12/17 11:21 01/12/17 11:21 01/12/17 11:21 01/12/17 11:21 01/12/17 11:21 - Attending Attestation I have independently seen and examined this patient on 01/12/17 and discussed plan of care with patient and resident physician 71 M with PMH of CAD, DM, HTN, admitted for RUQ pain due to choledocholithiass, he is s/p recent cholecystectomy with recent ERCP stent removal. He was incidentally found to have enterococcal UTI during this stay He has made remarkbale improvement, his pain has markably resolved, he is tolerating po and ambulatory. He has no new complains Physical exam is unremrarkable for any significant findings He is stable to be discharged home with follow up with GI and PCP. He will also be discharged on oral antibiotics for UTI Rest of details as in resident physician's documentation <JeanPolina - Last Filed: 01/12/17 13:45> Date of Encounter: 01/12/17 Time of Encounter: 08:55 - Discharge Diagnosis (1) RUQ abdominal pain Priority: Primary Status: Acute (2) CAD (coronary artery disease) Priority: Secondary Status: Chronic Qualifiers: Coronary Disease-Associated Artery/Lesion type: [place] artery [place] vs. transplanted heart: rosebud heart Associated angina: without angina Qualified Code(s): I25.10 - Atherosclerotic heart disease of [place] coronary artery without angina pectoris (3) CKD (chronic kidney disease) Priority: Secondary Status: Chronic Qualifiers: Chronic kidney disease stage: stage 2 (mild) Qualified Code(s): N18.2 - Chronic kidney disease, stage 2 (mild) (4) Diabetes mellitus Priority: Secondary Status: Chronic Qualifiers: Diabetes mellitus type: type 2 Diabetes mellitus complication status: with unspecified complications Diabetes mellitus intermodal dispatcher insulin use: with intermodal dispatcher use Qualified Code(s): E11.8 - Type 2 diabetes mellitus with unspecified complications; 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 Quiroz is a 71 year old male who presents with sudden onset of abdominal pain last night, which has progressively worsened since then. Pain became unbearable today despite having pain medications at home. He therefore came to the ER where her EF evaluation. CT scan was performed, but there was no significant pathology other than a small calculus in the cystic duct stump. Of note, patient had an ERCP performed yesterday with stent removal yesterday. He had gallbladder surgically removed in August of this year. He was doing well until yesterday shortly after his ERCP procedure. He then developed this pain which has progressively worsened. He denies any fevers or chills. He has had a little nausea but no vomiting. He denies any diarrhea. He's had abdominal pain in his his right upper quadrant and it radiates to his shoulder. It is very similar to his original symptoms of biliary colic. Dr. Avila was contacted by ER and will see patient in consultation for further workup and guidance. Patient was admitted and started on ciprofloxacin. The blood and urine culture , LFTs were sent and monitored. Dario saw the patient and due to recent cholecystectomy conservative management was decided on because of the risk of moving a clip from the cholecystectomy. The patient's abdominal pain continued to show improvement however he did develop hypoxia and tachypnea. Chest x-ray showed already vascular congestion that was unimproved with IV Lasix and BiPAP. Blood cultures preliminary results do not show growth. Urine culture grew Enterococcus with sensitivity pending. The hypoxia resolved and the patient no longer needed supplemental oxygen. The patient reported that his abdominal pain , was completely resolved and that he did feel that he was ready to be discharged. The patient was informed to finishes antibiotic to completion. He was told to return to the hospital should he develop fever, chills, worsening abdominal pain, nausea, vomiting. He was told to follow up with Dario and his PCP outpatient. The patient stated clearly understanding of the treatment plan and all questions were answered. - Time Spent with Patient Total time spent providing and/or coordinating discharge services: - Constitutional Vitals: Temp Pulse Resp BP Pulse Ox 98.6 F 74 16 139/64 90 01/12/17 06:23 01/12/17 06:23 01/12/17 06:23 01/12/17 06:23 01/12/17 06:23 General appearance: Present: cooperative, A&O X 3, pleasant, no acute distress, answers questions appropriately Exam: Gen.: Vitals noted. No acute distress. AAOx3 HEENT: oropharynx clear, Normocephalic, atraumatic Neck: Supple. No adenopathy. Cardiac: irregular, no murmur, rubs her gallops Pulmonary: CTA bilaterally, no wheezes, + rales in bases bilaterally equal chest expansion Abdomen: soft, nontender, Bowel sounds noted, no guarding MSK: ROM intact, no joint swelling noted Extremities: no BLE edema, nontender calf, no cyanosis or clubbing Neuro: A&Ox3, moves all extremities, no focal deficits Psych: Appropriate mood and behavior
[2017-01-12] MEDS: Gabapentin 100 MG CAPSULE PO SCH (09:30)
[2017-01-12] MEDS: amLODIPine 5 MG TABLET PO SCH (09:30)
[2017-01-12] MEDS: Isosorbide MONOnitrate (24 HR) 30 MG TAB.ER.24H PO SCH (09:30)
[2017-01-12] MEDS: Aspirin Enteric Coated 81 MG Tablet PO SCH (09:30)
[2017-01-12 11:28] VITALS: BP 102/67
[2017-01-12] MEDS ORDERED: FLUARIX QUAD 2017-18 36MOS UP/PF 0.5 ML SYRINGE IM ONE (14:42)
== END 2017-01-12 15:12 | disposition home or self-care (01) | DRG 445 ==
LOC: EMEROO 11:59 → 3ANU 11:59
PROVIDERS: ADMIT Internal Medicine; ATTEND Internal Medicine